=== PATIENT | male | born 1935 | race African-American/Black ===

== ENCOUNTER 2017-08-11 00:02 | Inpatient (IN) | payer MEDICARE, MEDICAID, OTHER ==
[~2017-08-11] VITALS: Ht 162.6 cm; Wt 71.7 kg
[~2017-08-11 00:02] MED LIST: FISH PO; GLIP5TAB12 PO; LEVO50TA8 PO; MULT-1116 PO; SIMV20TA6 PO; SPIR10PO PO; [UNRECOGNIZED DRUG - CODE]
[2017-08-11] MEDS ORDERED: FAMOTIDINE 20MG/2ML VIAL IV STA (00:22)
[2017-08-11] MEDS ORDERED: MORPHINE SULFATE 4 MG/ML CPJ (NOT FOR IM USE) IV STA (00:22)
[2017-08-11] MEDS ORDERED: ONDANSETRON HCL 4MG/2ML VIAL IV STA (00:22)
[2017-08-11 00:38] LABS: BASOPHILS % 0.6 % (0.0-2.0); EOSINOPHILS % 3.5 % (0.0-5.0); HEMATOCRIT. 29.2 % (42.0-52.0); HEMOGLOBIN. 9.6 g/dL (14.0-18.0); LYMPHOCYTES % 16.6 % (20.0-50.0); MEAN CORPUSCULAR HEMOGLOBIN 31.1 pg (28.0-32.0); MEAN CORPUSCULAR VOLUME 95.1 fL (80.0-94.0); MEAN PLATELET VOLUME 7.4 fl (7.4-10.4); MONOCYTES % 6.8 % (2.0-8.0); NEUTROPHILS % 72.5 % (40.0-76.0); PLATELET 232 x1000/uL (130-400); RED BLOOD CELL COUNT 3.07 mill/uL (4.7-6.1)
[2017-08-11 00:47] LABS: INR 1.2; PROTHROMBIN TIME 12.7 sec (9.4-11.6)
[2017-08-11 01:11] LABS: CHLORIDE 111 mEq/L (98-107)
[2017-08-11 01:14] LABS: ETHANOL BLOOD < 10 mg/dL
[2017-08-11] MEDS ORDERED: SODIUM CHLORIDE 0.9% 1000ML BAG (SEPSIS BOLUS) IV ONE (02:00)
[2017-08-11] MEDS ORDERED: LEVOFLOXACIN 750MG PREMIX 150 ML IV SCH (02:42)
[2017-08-11] MEDS ORDERED: METRONIDAZOLE 500 MG PREMIX 100 ML IV SCH (02:43)
[2017-08-11 08:00] VITALS: BP 200/83
[2017-08-11 08:55] LABS: CHLORIDE 117 mEq/L (98-107)
[2017-08-11 09:30] VITALS: BP 200/83
[2017-08-11] MEDS ORDERED: ONDANSETRON HCL 4MG/2ML VIAL IV PRN (09:30)
[2017-08-11] MEDS ORDERED: PANTOPRAZOLE SODIUM 40 MG/VIAL IV SCH (09:30)
[2017-08-11] MEDS ORDERED: DOCUSATE SODIUM 100MG CAPSULE PO PRN (09:30)
[2017-08-11] MEDS ORDERED: SODIUM CHLORIDE 0.45% 1,000 ML IV SCH (09:30)
[2017-08-11] MEDS ORDERED: ACETAMINOPHEN 650MG/20.3ML UDC GT PRN (09:30)
[2017-08-11 12:00] VITALS: BP 190/76
[2017-08-11] MEDS: LEVETIRACETAM 500MG TABLET PO SCH (12:00)
[2017-08-11] MEDS: SERTRALINE HCL 100MG TABLET PO SCH (12:01)
[2017-08-11] MEDS: DONEPEZIL HCL 10MG TABLET PO SCH (12:01)
[2017-08-11] MEDS: AMLODIPINE 10MG TABLET PO SCH (12:01)
[2017-08-11] MEDS: CARVEDILOL 25MG TABLET PO SCH ×2 (12:02→22:19)
[2017-08-11] MEDS: HYDRALAZINE HCL 25MG TABLET PO SCH ×2 (12:02→22:20)
[2017-08-11] MEDS ORDERED: BISACODYL 5MG TABLET PO NR ×3 (13:45→20:00)
[2017-08-11] MEDS ORDERED: SORBITOL 70% SOLN 30ML PO NR ×3 (13:45→20:00)
[2017-08-11] MEDS ORDERED: METOCLOPRAMIDE HCL 10MG/2ML VIAL IV NR ×3 (13:45→20:00)
[2017-08-11] MEDS: GABAPENTIN 100MG CAPSULE PO SCH ×2 (14:30→22:19)
[2017-08-11] MEDS ORDERED: SODIUM BICARBONATE IV SCH (15:15)
[2017-08-11] MEDS ORDERED: DEXTROSE 5% IV SCH (15:15)
[2017-08-11] MEDS ORDERED: WATER IV SCH (15:15)
[2017-08-11 16:00] VITALS: BP 198/78
[2017-08-11] MEDS: SODIUM BICARBONATE 50 MEQ in DEXTROSE 5% WATER 1,000 ML IV SCH (16:39)
[2017-08-11] MEDS: CLONIDINE 0.1MG TABLET PO PRN (17:34)
[2017-08-11] MEDS ORDERED: DEXTROSE 50% WATER 50ML SYRINGE IV PRN (18:15)
[2017-08-11] MEDS ORDERED: CALC667T5 MT (19:01)
[2017-08-11] MEDS ORDERED: ALFU10TA9 MT (19:01)
[2017-08-11] MEDS ORDERED: ASPI-1158 PO (19:01)
[2017-08-11] MEDS ORDERED: ATOR40TA70 MT (19:01)
[2017-08-11] MEDS ORDERED: CALC0.253 MT (19:01)
[2017-08-11] MEDS ORDERED: CARV25TA47 MT (19:02)
[2017-08-11] MEDS ORDERED: GABA-529 MT (19:11)
[2017-08-11] MEDS ORDERED: DONE10TA43 MT (19:11)
[2017-08-11] MEDS ORDERED: HYDR2TAB7 MT (19:11)
[2017-08-11] MEDS ORDERED: NIFE90TA43 MT (19:11)
[2017-08-11] MEDS ORDERED: HYDR-4134 MT (19:11)
[2017-08-11] MEDS ORDERED: LEVE500T19 MT (19:11)
[2017-08-11] MEDS ORDERED: CLON0.1T MT (19:11)
[2017-08-11 19:55] LABS: HEMATOCRIT 24.3 % (42.0-52.0); MEAN CORPUSCULAR HEMOGLOBIN 31.9 pg (28.0-32.0); MEAN CORPUSCULAR VOLUME 97.1 fL (80.0-94.0); PLATELET 192 x1000/uL (130-400); RED BLOOD CELL COUNT 2.51 mill/uL (4.7-6.1); RED CELL DISTRIBUTION WIDTH 15.4 % (11.6-14.6)
[2017-08-11 20:00] VITALS: BP 133/64
[2017-08-11] MEDS ORDERED: PENT400T11 MT (20:01)
[2017-08-11] MEDS ORDERED: SERT-112 MT (20:01)
[2017-08-11] MEDS ORDERED: SORBITOL 70% SOLN 30ML PO SCH (22:12)
[2017-08-11] MEDS ORDERED: BISACODYL 5MG TABLET PO SCH (22:13)
[2017-08-11] MEDS ORDERED: METOCLOPRAMIDE HCL 10MG/2ML VIAL IV SCH (22:14)
[2017-08-11] MEDS: PANTOPRAZOLE SODIUM 40 MG/VIAL IV SCH (22:19)
[2017-08-11] MEDS: ATORVASTATIN CALCIUM 10MG TABLET PO SCH (22:20)
[2017-08-11] MEDS: BLOOD SUGAR DIAGNOSTIC STRIP TEST SCH (22:40)
[2017-08-11] MEDS: INSULIN LISPRO 100 UNITS/ML SUBCUT SCH (22:40)
[2017-08-12] VITALS (10 sets, daily range): BP systolic 119–177; BP diastolic 65–82
[2017-08-12] MEDS: GABAPENTIN 100MG CAPSULE PO SCH ×3 (06:00→21:24)
[2017-08-12 07:13] LABS: BASOPHILS % 0.7 % (0.0-2.0); EOSINOPHILS % 2.4 % (0.0-5.0); HEMATOCRIT. 21.8 % (42.0-52.0); HEMOGLOBIN. 7.3 g/dL (14.0-18.0); LYMPHOCYTES % 20.7 % (20.0-50.0); MEAN CORPUSCULAR HEMOGLOBIN 31.8 pg (28.0-32.0); MEAN CORPUSCULAR VOLUME 94.8 fL (80.0-94.0); MEAN PLATELET VOLUME 7.8 fl (7.4-10.4); MONOCYTES % 11.7 % (2.0-8.0); NEUTROPHILS % 64.5 % (40.0-76.0); PLATELET 180 x1000/uL (130-400); RED CELL DISTRIBUTION WIDTH 15.1 % (11.6-14.6)
[2017-08-12] MEDS: BLOOD SUGAR DIAGNOSTIC STRIP TEST SCH ×4 (07:20→21:24)
[2017-08-12 07:50] LABS: CHLORIDE 114 mEq/L (98-107)
[2017-08-12] MEDS: INSULIN LISPRO 100 UNITS/ML SUBCUT SCH ×4 (07:50→21:00)
[2017-08-12] MEDS: LEVETIRACETAM 500MG TABLET PO SCH (09:02)
[2017-08-12] MEDS: DONEPEZIL HCL 10MG TABLET PO SCH (09:02)
[2017-08-12] MEDS: HYDRALAZINE HCL 25MG TABLET PO SCH ×2 (09:03→20:53)
[2017-08-12] MEDS: AMLODIPINE 10MG TABLET PO SCH (09:03)
[2017-08-12] MEDS: SERTRALINE HCL 100MG TABLET PO SCH (09:03)
[2017-08-12] MEDS: CARVEDILOL 25MG TABLET PO SCH ×2 (09:04→20:53)
[2017-08-12] MEDS: PANTOPRAZOLE SODIUM 40 MG/VIAL IV SCH ×2 (09:04→20:52)
[2017-08-12] MEDS: SODIUM BICARBONATE 50 MEQ in DEXTROSE 5% WATER 1,000 ML IV SCH (10:06)
[2017-08-12] MEDS ORDERED: SODIUM CHLORIDE 0.9% 10ML VIAL ONE (15:21)
[2017-08-12] MEDS ORDERED: SIMETHICONE 40 MG/0.6 ML 30ML ONE (15:21)
[2017-08-12 16:58] LABS: HEMOGLOBIN 8.5 g/dL (14.0-18.0)
[2017-08-12] MEDS ORDERED: MIDAZOLAM HCL 5 MG/5 ML VIAL ONE (17:40)
[2017-08-12] MEDS ORDERED: FENTANYL CITRATE/PF 50MCG/ML 2ML VIAL ONE (17:40)
[2017-08-12] MEDS ORDERED: FENTANYL CITRATE/PF 50MCG/ML 2ML VIAL IV PRN (18:21)
[2017-08-12] MEDS ORDERED: MIDAZOLAM HCL 5 MG/5 ML VIAL IV PRN (18:42)
[2017-08-12] MEDS: ATORVASTATIN CALCIUM 10MG TABLET PO SCH (20:53)
[2017-08-13] VITALS: BP 175/77
[2017-08-13] MEDS: SODIUM BICARBONATE 50 MEQ in DEXTROSE 5% WATER 1,000 ML IV SCH (03:01)
[2017-08-13 04:00] VITALS: BP 177/74
[2017-08-13] MEDS: GABAPENTIN 100MG CAPSULE PO SCH ×3 (06:01→21:23)
[2017-08-13] MEDS: BLOOD SUGAR DIAGNOSTIC STRIP TEST SCH ×4 (07:20→21:21)
[2017-08-13] MEDS: INSULIN LISPRO 100 UNITS/ML SUBCUT SCH ×4 (07:50→21:00)
[2017-08-13 08:00] VITALS: BP 166/77
[2017-08-13] MEDS: PANTOPRAZOLE SODIUM 40 MG/VIAL IV SCH ×2 (08:17→21:24)
[2017-08-13] MEDS: SERTRALINE HCL 100MG TABLET PO SCH (08:21)
[2017-08-13] MEDS: LEVETIRACETAM 500MG TABLET PO SCH (08:21)
[2017-08-13] MEDS: DONEPEZIL HCL 10MG TABLET PO SCH (08:22)
[2017-08-13] MEDS: AMLODIPINE 10MG TABLET PO SCH (08:22)
[2017-08-13] MEDS: CARVEDILOL 25MG TABLET PO SCH ×2 (08:22→21:00)
[2017-08-13] MEDS: HYDRALAZINE HCL 25MG TABLET PO SCH ×2 (08:23→21:23)
[2017-08-13 12:00] VITALS: BP 169/69
[2017-08-13 12:19] LABS: BASOPHILS % 0.5 % (0.0-2.0); EOSINOPHILS % 4.1 % (0.0-5.0); HEMATOCRIT. 27.2 % (42.0-52.0); HEMOGLOBIN. 9.1 g/dL (14.0-18.0); LYMPHOCYTES % 12.7 % (20.0-50.0); MEAN CORPUSCULAR HEMOGLOBIN 31.6 pg (28.0-32.0); MEAN CORPUSCULAR VOLUME 94.5 fL (80.0-94.0); MEAN PLATELET VOLUME 7.9 fl (7.4-10.4); MONOCYTES % 7.3 % (2.0-8.0); NEUTROPHILS % 75.4 % (40.0-76.0); PLATELET 200 x1000/uL (130-400); RED BLOOD CELL COUNT 2.88 mill/uL (4.7-6.1); RED CELL DISTRIBUTION WIDTH 15.4 % (11.6-14.6)
[2017-08-13] MEDS: DEXTROSE 5% WATER 1,000 ML IV SCH (13:00)
[2017-08-13] MEDS: CLONIDINE 0.1MG TABLET PO PRN (15:01)
[2017-08-13] MEDS: HYDROMORPHONE HCL 2MG TABLET PO PRN (19:28)
[2017-08-13 20:00] VITALS: BP 155/62
[2017-08-13] MEDS: ATORVASTATIN CALCIUM 10MG TABLET PO SCH (21:23)
[2017-08-14] VITALS: BP 140/63
[2017-08-14] MEDS: DEXTROSE 5% WATER 1,000 ML IV SCH ×3 (00:21→23:43)
[2017-08-14 04:00] VITALS: BP 187/82
[2017-08-14] MEDS: CLONIDINE 0.1MG TABLET PO PRN (05:37)
[2017-08-14] MEDS: GABAPENTIN 100MG CAPSULE PO SCH ×3 (05:37→22:20)
[2017-08-14] MEDS: BLOOD SUGAR DIAGNOSTIC STRIP TEST SCH ×4 (06:23→22:30)
[2017-08-14 07:32] LABS: BASOPHILS % 0.6 % (0.0-2.0); EOSINOPHILS % 7.1 % (0.0-5.0); HEMOGLOBIN. 7.9 g/dL (14.0-18.0); LYMPHOCYTES % 21.2 % (20.0-50.0); MEAN CORPUSCULAR HEMOGLOBIN 31.6 pg (28.0-32.0); MEAN CORPUSCULAR VOLUME 92.1 fL (80.0-94.0); MEAN PLATELET VOLUME 7.8 fl (7.4-10.4); MONOCYTES % 8.3 % (2.0-8.0); NEUTROPHILS % 62.8 % (40.0-76.0); PLATELET 182 x1000/uL (130-400); RED CELL DISTRIBUTION WIDTH 14.9 % (11.6-14.6)
[2017-08-14] MEDS: INSULIN LISPRO 100 UNITS/ML SUBCUT SCH ×4 (07:32→22:30)
[2017-08-14 08:00] VITALS: BP 204/82
[2017-08-14] MEDS: PANTOPRAZOLE SODIUM 40 MG/VIAL IV SCH ×2 (09:00→22:20)
[2017-08-14] MEDS: HYDRALAZINE HCL 25MG TABLET PO SCH ×2 (09:37→22:22)
[2017-08-14] MEDS: LEVETIRACETAM 500MG TABLET PO SCH (09:37)
[2017-08-14] MEDS: DONEPEZIL HCL 10MG TABLET PO SCH (09:38)
[2017-08-14] MEDS: CARVEDILOL 25MG TABLET PO SCH ×2 (09:38→22:22)
[2017-08-14] MEDS: AMLODIPINE 10MG TABLET PO SCH (09:38)
[2017-08-14] MEDS: SERTRALINE HCL 100MG TABLET PO SCH (09:38)
[2017-08-14] MEDS ORDERED: POTASSIUM CHLORIDE 20MEQ TABLET SR PO NR (10:00)
[2017-08-14] MEDS: HYDROMORPHONE HCL 2MG TABLET PO PRN ×2 (11:37→23:44)
[2017-08-14 11:38] VITALS: BP 140/55
[2017-08-14 16:00] VITALS: BP 156/67
[2017-08-14] MEDS: HYDROCODONE/ACETAMINOPHEN 5/325MG TABLET PO PRN (17:44)
[2017-08-14 20:00] VITALS: BP 153/69
[2017-08-14] MEDS: ATORVASTATIN CALCIUM 10MG TABLET PO SCH (22:20)
[2017-08-15] VITALS: BP 181/71
[2017-08-15 04:00] VITALS: BP 160/66
[2017-08-15] MEDS: GABAPENTIN 100MG CAPSULE PO SCH ×3 (06:23→22:02)
[2017-08-15] MEDS: BLOOD SUGAR DIAGNOSTIC STRIP TEST SCH ×4 (06:58→22:00)
[2017-08-15] MEDS: INSULIN LISPRO 100 UNITS/ML SUBCUT SCH ×4 (06:59→22:00)
[2017-08-15 07:46] LABS: BASOPHILS % 0.6 % (0.0-2.0); EOSINOPHILS % 7.6 % (0.0-5.0); HEMATOCRIT. 23.2 % (42.0-52.0); HEMOGLOBIN. 7.9 g/dL (14.0-18.0); LYMPHOCYTES % 23.9 % (20.0-50.0); MEAN CORPUSCULAR HEMOGLOBIN 31.4 pg (28.0-32.0); MEAN CORPUSCULAR VOLUME 91.6 fL (80.0-94.0); MEAN PLATELET VOLUME 7.6 fl (7.4-10.4); NEUTROPHILS % 58.9 % (40.0-76.0); PLATELET 182 x1000/uL (130-400); RED BLOOD CELL COUNT 2.53 mill/uL (4.7-6.1); RED CELL DISTRIBUTION WIDTH 14.8 % (11.6-14.6)
[2017-08-15 08:00] VITALS: BP 191/77
[2017-08-15 08:53] LABS: CHLORIDE 107 mEq/L (98-107)
[2017-08-15] MEDS: CARVEDILOL 25MG TABLET PO SCH ×2 (09:00→22:03)
[2017-08-15] MEDS: HYDRALAZINE HCL 25MG TABLET PO SCH ×2 (09:10→22:04)
[2017-08-15] MEDS: PANTOPRAZOLE SODIUM 40 MG/VIAL IV SCH ×2 (09:10→22:02)
[2017-08-15] MEDS: DONEPEZIL HCL 10MG TABLET PO SCH (09:11)
[2017-08-15] MEDS: SERTRALINE HCL 100MG TABLET PO SCH (09:11)
[2017-08-15] MEDS: LEVETIRACETAM 500MG TABLET PO SCH (09:11)
[2017-08-15] MEDS: AMLODIPINE 10MG TABLET PO SCH (09:12)
[2017-08-15] MEDS: HYDROCODONE/ACETAMINOPHEN 5/325MG TABLET PO PRN ×2 (09:12→22:09)
[2017-08-15] MEDS ORDERED: POTASSIUM CHLORIDE INJ 40 MEQ in DEXT 5% WATER 500 ML IV ONE (09:15)
[2017-08-15] MEDS: KCL 20MEQ/100ML PREMIX 100 ML IV SCH ×2 (11:16→12:29)
[2017-08-15 12:00] VITALS: BP 172/73
[2017-08-15] MEDS ORDERED: POTASSIUM CHLORIDE 20MEQ TABLET SR PO NR (13:30)
[2017-08-15 16:00] VITALS: BP 167/64
[2017-08-15] MEDS: HYDROMORPHONE HCL 2MG TABLET PO PRN (16:58)
[2017-08-15] MEDS: CLONIDINE 0.1MG TABLET PO PRN (19:05)
[2017-08-15 20:00] VITALS: BP 171/72
[2017-08-15] MEDS: ATORVASTATIN CALCIUM 10MG TABLET PO SCH (22:04)
[2017-08-16] VITALS: BP 149/56
[2017-08-16 04:00] VITALS: BP 163/68
[2017-08-16 05:30] LABS: BASOPHILS % 0.5 % (0.0-2.0); EOSINOPHILS % 7.8 % (0.0-5.0); HEMATOCRIT. 22.1 % (42.0-52.0); HEMOGLOBIN. 7.7 g/dL (14.0-18.0); LYMPHOCYTES % 25.5 % (20.0-50.0); MEAN CORPUSCULAR HEMOGLOBIN 32.2 pg (28.0-32.0); MEAN CORPUSCULAR VOLUME 91.8 fL (80.0-94.0); MEAN PLATELET VOLUME 7.5 fl (7.4-10.4); MONOCYTES % 8.7 % (2.0-8.0); NEUTROPHILS % 57.5 % (40.0-76.0); PLATELET 184 x1000/uL (130-400); RED CELL DISTRIBUTION WIDTH 14.6 % (11.6-14.6)
[2017-08-16] MEDS: GABAPENTIN 100MG CAPSULE PO SCH ×2 (05:50→14:55)
[2017-08-16] MEDS: BLOOD SUGAR DIAGNOSTIC STRIP TEST SCH ×3 (07:20→17:33)
[2017-08-16] MEDS: INSULIN LISPRO 100 UNITS/ML SUBCUT SCH ×3 (07:22→17:50)
[2017-08-16 08:00] VITALS: BP 194/84
[2017-08-16] MEDS: CARVEDILOL 25MG TABLET PO SCH (08:36)
[2017-08-16] MEDS: DONEPEZIL HCL 10MG TABLET PO SCH (08:52)
[2017-08-16] MEDS: LEVETIRACETAM 500MG TABLET PO SCH (08:53)
[2017-08-16] MEDS: HYDRALAZINE HCL 25MG TABLET PO SCH (08:53)
[2017-08-16] MEDS: AMLODIPINE 10MG TABLET PO SCH (08:54)
[2017-08-16] MEDS: PANTOPRAZOLE SODIUM 40 MG/VIAL IV SCH (08:58)
[2017-08-16] MEDS: SERTRALINE HCL 100MG TABLET PO SCH (08:58)
[2017-08-16] MEDS ORDERED: HYDROCODONE/ACETAMINOPHEN 5/325MG TABLET PO PRN (10:45)
[2017-08-16 12:00] VITALS: BP 167/68
[2017-08-16] MEDS ORDERED: HYDROCODONE/ACETAMINOPHEN 10/325MG TABLET PO PRN (14:00)
[2017-08-16 16:00] VITALS: BP 163/75
[2017-08-16 16:38] VITALS: BP 163/75
[2017-08-16] MEDS: CLONIDINE 0.1MG TABLET PO PRN (17:30)
== END 2017-08-16 21:00 | disposition home health service (06) | DRG 377 ==
LOC: ER 00:02 → EDBEDREQ 02:30 → ENRESERV 06:39 → 6EST 08:48
PROVIDERS: ADMIT Hospitalist; ATTEND Hospitalist
PROC: 0DB98ZX Excision of Duodenum, Via Natural or Artificial Opening Endoscopic, Diagnostic (ICD-10-PCS; 2017-08-12)
PROC: 0DB68ZX Excision of Stomach, Via Natural or Artificial Opening Endoscopic, Diagnostic (ICD-10-PCS; 2017-08-12)
PROC: 30233N1 Transfusion of Nonautologous Red Blood Cells into Peripheral Vein, Percutaneous Approach (ICD-10-PCS; 2017-08-12)
PROC: 0DBE8ZX Excision of Large Intestine, Via Natural or Artificial Opening Endoscopic, Diagnostic (ICD-10-PCS; principal; 2017-08-12 12:00)
DX: K29.71 Gastritis, unspecified, with bleeding (principal); N17.0 Acute kidney failure with tubular necrosis; E87.0 Hyperosmolality and hypernatremia; E87.2 Acidosis; K57.31 Diverticulosis of large intestine without perforation or abscess with bleeding; D50.0 Iron deficiency anemia secondary to blood loss (chronic); K64.8 Other hemorrhoids; E87.5 Hyperkalemia; N18.9 Chronic kidney disease, unspecified; D72.829 Elevated white blood cell count, unspecified; K20.9 Esophagitis, unspecified; E11.22 Type 2 diabetes mellitus with diabetic chronic kidney disease; I12.9 Hypertensive chronic kidney disease with stage 1 through stage 4 chronic kidney disease, or unspecified chronic kidney disease; Z90.49 Acquired absence of other specified parts of digestive tract; Z86.73 Personal history of transient ischemic attack (TIA), and cerebral infarction without residual deficits; Z88.8 Allergy status to other drugs, medicaments and biological substances; Z79.899 Other long term (current) drug therapy
CPT/HCPCS: 36415; 36430; 71045; 74176; 80048; 80053; 82270; 82962; 83605; 83690; 83735; 83880; 84100; 84484; 85014; 85018; 85025; 85027; 85610; 86850; 86900; 86920; 87040; 87045; 87449; 87493; 88305; 88312; 88313; 89055; 93005; 93970; 96365; 96367; 96375; 97162; 97166; 99152; 99153; 99291; A4216; C1893; C9113; G0482; J1956; J2250; J2270; J2405; J2765; J3010; J3480; J3490; J7030; J7040; J7070; P9016

== ENCOUNTER 2018-03-09 01:57 | Inpatient (IN) | payer MEDICARE, MEDICAID, OTHER ==
[~2018-03-09] VITALS: Ht 172.7 cm; Wt 80.3 kg
[2018-03-09] VITALS (68 sets, daily range): BP systolic 91–167; BP diastolic 46–84
[~2018-03-09 01:57] MED LIST changes: +ALFU10TA9 MT; +ASPI-1158 PO; +ATOR40TA70 MT; +CALC0.253 MT; +CALC667T5 MT; +CARV25TA47 MT; +CLON0.1T MT; +DONE10TA43 MT; +GABA-529 MT; +HYDR-4134 MT; +HYDR2TAB7 MT; +LEVE500T19 MT; +NIFE90TA43 MT; +PENT400T11 MT; +SERT-112 MT
[2018-03-09 02:24] LABS: CHLORIDE 115 mEq/L (98-107)
[2018-03-09 02:26] LABS: INR 1.2; PROTHROMBIN TIME 11.9 sec (9.1-11.1)
[2018-03-09 02:31] LABS: LDL CHOLESTEROL 63 mg/dL (5-100)
[2018-03-09] MEDS ORDERED: NICARDIPINE 100 MG in SODIUM CHLORIDE 0.9% 60 ML IV ONE (02:45)
[2018-03-09] MEDS ORDERED: DEXAMETHASONE 10 MG/ML VIAL IV ONE (02:45)
[2018-03-09] MEDS ORDERED: LEVETIRACETAM 500MG PREMIX 100 ML IV ONE (02:45)
[2018-03-09 02:57] LABS: BASOPHILS % 0.7 % (0.0-2.0); EOSINOPHILS % 7.9 % (0.0-5.0); HEMATOCRIT. 28.5 % (42.0-52.0); HEMOGLOBIN. 9.5 g/dL (14.0-18.0); MEAN CORPUSCULAR HEMOGLOBIN 30.5 pg (28.0-32.0); MEAN CORPUSCULAR VOLUME 91.8 fL (80.0-94.0); MEAN PLATELET VOLUME 7.9 fl (7.4-10.4); MONOCYTES % 6.9 % (2.0-8.0); NEUTROPHILS % 71.5 % (40.0-76.0); PLATELET 230 x1000/uL (130-400); RED CELL DISTRIBUTION WIDTH 15.1 % (11.6-14.6)
[2018-03-09] MEDS ORDERED: HYDRALAZINE 20MG/ML VIAL IV ONE (04:15)
[2018-03-09] MEDS ORDERED: NICARDIPINE 50 MG in SODIUM CHLORIDE 0.9% 230 ML IV PRN (06:00)
[2018-03-09] MEDS: DEXAMETHASONE 4MG/ML 1ML VIAL IV SCH ×3 (07:05→17:02)
[2018-03-09] MEDS: DEXT 5%/LACTATED RINGERS 1,000 ML IV SCH (07:06)
[2018-03-09] MEDS ORDERED: LEVETIRACETAM 500MG PREMIX 100 ML IV SCH (09:00)
[2018-03-09] MEDS: NITROPRUSSIDE 50 MG in SODIUM CHLORIDE 0.9% 248 ML IV PRN (09:31)
[2018-03-09] MEDS ORDERED: DEXTROSE 50% WATER 50ML SYRINGE IV PRN (10:15)
[2018-03-09] MEDS: LEVETIRACETAM 500MG in SODIUM CHLORIDE 0.9% 100ML IV SCH ×2 (10:25→21:41)
[2018-03-09] MEDS: BLOOD SUGAR DIAGNOSTIC STRIP TEST SCH ×3 (11:30→21:36)
[2018-03-09] MEDS: INSULIN LISPRO 100 UNITS/ML SUBCUT SCH ×3 (12:00→21:42)
[2018-03-09] MEDS ORDERED: FOLI1TAB33 MT (14:47)
[2018-03-09] MEDS ORDERED: CHOL400C8 MT (14:47)
[2018-03-09] MEDS ORDERED: CHOL400T15 MT (14:47)
[2018-03-09] MEDS ORDERED: FERR325T6 MT (14:47)
[2018-03-09] MEDS: CLONIDINE 0.1MG TABLET PO SCH (16:56)
[2018-03-09] MEDS: SERTRALINE HCL 100MG TABLET PO SCH (16:56)
[2018-03-09 18:42] LABS: T4 FREE 0.63 ng/dL (0.76-1.46)
[2018-03-09] MEDS: ATORVASTATIN CALCIUM 40MG TABLET PO SCH (21:00)
[2018-03-09] MEDS: CARVEDILOL 25MG TABLET PO SCH (21:41)
[2018-03-10] VITALS (91 sets, daily range): BP systolic 92–224; BP diastolic 28–134
[2018-03-10] MEDS: DEXAMETHASONE 4MG/ML 1ML VIAL IV SCH ×5 (00:10→23:02)
[2018-03-10] MEDS: DEXT 5%/LACTATED RINGERS 1,000 ML IV SCH (00:11)
[2018-03-10] MEDS: HYDROCODONE/APAP 7.5/325MG 1 TAB TABLET PO PRN ×2 (00:11→13:19)
[2018-03-10] MEDS: NITROPRUSSIDE 50 MG in SODIUM CHLORIDE 0.9% 248 ML IV PRN ×5 (00:46→21:02)
[2018-03-10 02:24] LABS: CREATINE KINASE 55 IU/L (39-308)
[2018-03-10 02:25] LABS: CREATINE KINASE MB FRACTION < 1.0 ng/mL (0.5-3.6)
[2018-03-10 06:24] LABS: CREATINE KINASE 57 IU/L (39-308)
[2018-03-10 06:26] LABS: CREATINE KINASE MB FRACTION < 1.0 ng/mL (0.5-3.6)
[2018-03-10] MEDS: BLOOD SUGAR DIAGNOSTIC STRIP TEST SCH ×4 (06:30→21:09)
[2018-03-10] MEDS: LEVOTHYROXINE SODIUM 50MCG TABLET PO SCH (06:44)
[2018-03-10] MEDS: INSULIN LISPRO 100 UNITS/ML SUBCUT SCH ×4 (06:44→21:00)
[2018-03-10] MEDS: SERTRALINE HCL 100MG TABLET PO SCH (08:10)
[2018-03-10] MEDS: CLONIDINE 0.1MG TABLET PO SCH ×2 (08:10→17:00)
[2018-03-10] MEDS: GLIPIZIDE 5MG TABLET PO SCH (08:10)
[2018-03-10] MEDS: CARVEDILOL 25MG TABLET PO SCH ×2 (08:11→20:09)
[2018-03-10] MEDS: DONEPEZIL HCL 10MG TABLET PO SCH (08:11)
[2018-03-10] MEDS ORDERED: LEVETIRACETAM 500MG TABLET PO SCH (09:00)
[2018-03-10] MEDS: LEVETIRACETAM 500MG in SODIUM CHLORIDE 0.9% 100ML IV SCH ×2 (09:11→20:09)
[2018-03-10 09:51] LABS: BG CARBOXYHEMOGLOBIN 0.3 % (0.5-1.5); BG DEOXYHEMOGLOBIN 4.9 % (0.0-5.0); BG FRACTION INSPIRED OXYGEN 21; BG HCO3 ACT 21.1 mmol/L (22.0-26.0); BG METHEMOGLOBIN 0.4 % (0.0-1.5); BG OXYGEN SATURATION 95.1 % (92.0-98.5); BG OXYHEMOGLOBIN 94.4 % (94.0-97.0); BG PCO2 34.6 mmHg (35.0-45.0); BG PH 7.404 (7.350-7.450); BG PO2 77.6 mmHg (75.0-100.0); BG SAMPLE SITE RIGHT RADIAL; BG TOTAL HEMOGLOBIN 10.9 g/dL (12.0-18.0); BG VENT MODE ROOM AIR
[2018-03-10 14:03] LABS: CREATINE KINASE 57 IU/L (39-308); CREATINE KINASE MB FRACTION < 1.0 ng/mL (0.5-3.6)
[2018-03-10] MEDS: SODIUM CHLORIDE 0.9% 1,000 ML IV SCH (15:58)
[2018-03-10] MEDS ORDERED: FUROSEMIDE 100MG/10ML VIAL IVP SCH (18:00)
[2018-03-10 19:03] LABS: HEPATITIS B SURFACE ANTIGEN NEGATIVE
[2018-03-10 19:33] LABS: HEPATITIS A AB IGM NEGATIVE (NEGATIVE)
[2018-03-10] MEDS: ATORVASTATIN CALCIUM 40MG TABLET PO SCH (20:09)
[2018-03-11] VITALS (98 sets, daily range): BP systolic 94–203; BP diastolic 30–90
[2018-03-11] MEDS: NITROPRUSSIDE 50 MG in SODIUM CHLORIDE 0.9% 248 ML IV PRN ×2 (01:33→05:59)
[2018-03-11] MEDS: CLONIDINE 0.2MG TABLET PO PRN (01:53)
[2018-03-11] MEDS: DEXAMETHASONE 4MG/ML 1ML VIAL IV SCH ×3 (05:08→18:09)
[2018-03-11 05:31] LABS: HEMATOCRIT. 21.5 % (42.0-52.0); MEAN CORPUSCULAR HEMOGLOBIN 29.9 pg (28.0-32.0); MEAN CORPUSCULAR VOLUME 92.6 fL (80.0-94.0); MEAN PLATELET VOLUME 8.5 fl (7.4-10.4); PLATELET 189 x1000/uL (130-400); RED BLOOD CELL COUNT 2.32 mill/uL (4.7-6.1); RED CELL DISTRIBUTION WIDTH 15.3 % (11.6-14.6)
[2018-03-11 06:05] LABS: HEMOGLOBIN. 6.9 g/dL (14.0-18.0)
[2018-03-11] MEDS: INSULIN LISPRO 100 UNITS/ML SUBCUT SCH ×4 (06:54→20:37)
[2018-03-11] MEDS: BLOOD SUGAR DIAGNOSTIC STRIP TEST SCH ×4 (06:54→20:37)
[2018-03-11] MEDS: LEVOTHYROXINE SODIUM 50MCG TABLET PO SCH (06:57)
[2018-03-11 08:02] LABS: MEAN CORPUSCULAR HEMOGLOBIN 30.7 pg (28.0-32.0); MEAN CORPUSCULAR VOLUME 92.4 fL (80.0-94.0); MEAN PLATELET VOLUME 8.4 fl (7.4-10.4); PLATELET 170 x1000/uL (130-400); RED BLOOD CELL COUNT 2.24 mill/uL (4.7-6.1); RED CELL DISTRIBUTION WIDTH 15.1 % (11.6-14.6)
[2018-03-11 08:12] LABS: HEMATOCRIT. 20.7 % (42.0-52.0); HEMOGLOBIN. 6.9 g/dL (14.0-18.0)
[2018-03-11 08:39] LABS: PLATELET ESTIMATE NORMAL
[2018-03-11] MEDS: SERTRALINE HCL 100MG TABLET PO SCH (09:19)
[2018-03-11] MEDS: LEVETIRACETAM 500MG in SODIUM CHLORIDE 0.9% 100ML IV SCH ×2 (09:19→20:40)
[2018-03-11] MEDS: CLONIDINE 0.1MG TABLET PO SCH ×2 (09:19→18:09)
[2018-03-11] MEDS: DONEPEZIL HCL 10MG TABLET PO SCH (09:19)
[2018-03-11] MEDS: GLIPIZIDE 5MG TABLET PO SCH (09:19)
[2018-03-11] MEDS: CARVEDILOL 25MG TABLET PO SCH ×2 (09:20→20:40)
[2018-03-11] MEDS: HYDROCODONE/APAP 7.5/325MG 1 TAB TABLET PO PRN (09:24)
[2018-03-11] MEDS: NITROPRUSSIDE 100 MG in DEXT 5% WATER 250 ML IV PRN ×3 (09:35→19:51)
[2018-03-11 10:27] LABS: PLATELET ESTIMATE NORMAL
[2018-03-11] MEDS: SODIUM CHLORIDE 0.9% 1,000 ML IV SCH ×2 (11:45→14:16)
[2018-03-11] MEDS: ACETAMINOPHEN 325MG TABLET PO PRN (12:02)
[2018-03-11] MEDS: MORPHINE SULFATE 4 MG/ML CPJ (NOT FOR IM USE) IV PRN (14:11)
[2018-03-11] MEDS: ATORVASTATIN CALCIUM 40MG TABLET PO SCH (20:40)
[2018-03-12] VITALS (81 sets, daily range): BP systolic 114–235; BP diastolic 41–101
[2018-03-12] MEDS: NITROPRUSSIDE 100 MG in DEXT 5% WATER 250 ML IV PRN (00:27)
[2018-03-12] MEDS: DEXAMETHASONE 4MG/ML 1ML VIAL IV SCH ×4 (00:27→18:08)
[2018-03-12] MEDS ORDERED: NITROGLYCERIN 50MG PREMIX 250 ML IV PRN (04:45)
[2018-03-12] MEDS: LEVOTHYROXINE SODIUM 50MCG TABLET PO SCH (05:34)
[2018-03-12] MEDS: BLOOD SUGAR DIAGNOSTIC STRIP TEST SCH ×4 (05:34→21:00)
[2018-03-12] MEDS: INSULIN LISPRO 100 UNITS/ML SUBCUT SCH ×4 (07:00→22:01)
[2018-03-12] MEDS ORDERED: NICARDIPINE 100 MG in SODIUM CHLORIDE 0.9% 60 ML IV PRN (07:45)
[2018-03-12] MEDS: DONEPEZIL HCL 10MG TABLET PO SCH (08:26)
[2018-03-12] MEDS: CLONIDINE 0.1MG TABLET PO SCH ×3 (08:26→22:00)
[2018-03-12] MEDS: CLONIDINE 0.2MG TABLET PO PRN (08:26)
[2018-03-12] MEDS: GLIPIZIDE 5MG TABLET PO SCH (08:27)
[2018-03-12] MEDS: SERTRALINE HCL 100MG TABLET PO SCH (08:34)
[2018-03-12] MEDS: CARVEDILOL 25MG TABLET PO SCH ×2 (09:00→21:00)
[2018-03-12 09:42] LABS: HEMOGLOBIN. 9.4 g/dL (14.0-18.0); MEAN CORPUSCULAR HEMOGLOBIN 30.6 pg (28.0-32.0); MEAN CORPUSCULAR VOLUME 91.3 fL (80.0-94.0); MEAN PLATELET VOLUME 8.7 fl (7.4-10.4); PLATELET 190 x1000/uL (130-400); RED BLOOD CELL COUNT 3.07 mill/uL (4.7-6.1); RED CELL DISTRIBUTION WIDTH 14.9 % (11.6-14.6)
[2018-03-12] MEDS: LEVETIRACETAM 500MG in SODIUM CHLORIDE 0.9% 100ML IV SCH ×2 (10:04→21:33)
[2018-03-12] MEDS: HYDROCODONE/APAP 7.5/325MG 1 TAB TABLET PO PRN (10:34)
[2018-03-12] MEDS ORDERED: LIDOCAINE HCL 1% 20ML VIAL (Pyxis) INJ ONE (10:47)
[2018-03-12 11:49] LABS: PLATELET ESTIMATE NORMAL
[2018-03-12] MEDS: MORPHINE SULFATE 4 MG/ML CPJ (NOT FOR IM USE) IV PRN (12:28)
[2018-03-12] MEDS ORDERED: ENALAPRIL 1.25MG/ML VIAL 1ML IV SCH (13:00)
[2018-03-12] MEDS ORDERED: HYDRALAZINE HCL 50MG TABLET PO SCH ×2 (13:45→14:00)
[2018-03-12] MEDS ORDERED: NITROPRUSSIDE 100 MG in DEXT 5% WATER 250 ML IV PRN (15:45)
[2018-03-12] MEDS: NITROPRUSSIDE IV PRN (16:02)
[2018-03-12] MEDS: SODIUM CHLORIDE 0.9% IV PRN (16:02)
[2018-03-12] MEDS: ATORVASTATIN CALCIUM 40MG TABLET PO SCH (21:33)
[2018-03-12] MEDS: HYDRALAZINE HCL 100MG TABLET PO SCH (21:33)
[2018-03-12] MEDS: MINOXIDIL 2.5MG TABLET PO SCH (21:33)
[2018-03-13] VITALS (93 sets, daily range): BP systolic 85–176; BP diastolic 31–85
[2018-03-13] MEDS: DEXAMETHASONE 4MG/ML 1ML VIAL IV SCH ×4 (00:38→17:32)
[2018-03-13] MEDS: MORPHINE SULFATE 4 MG/ML CPJ (NOT FOR IM USE) IV PRN ×3 (01:22→17:32)
[2018-03-13] MEDS: HYDROCODONE/APAP 7.5/325MG 1 TAB TABLET PO PRN ×2 (02:33→10:47)
[2018-03-13 05:44] LABS: HEMATOCRIT. 24.8 % (42.0-52.0); HEMOGLOBIN. 8.2 g/dL (14.0-18.0); MEAN CORPUSCULAR HEMOGLOBIN 30.6 pg (28.0-32.0); MEAN CORPUSCULAR VOLUME 92.8 fL (80.0-94.0); PLATELET 156 x1000/uL (130-400); RED BLOOD CELL COUNT 2.67 mill/uL (4.7-6.1); RED CELL DISTRIBUTION WIDTH 14.9 % (11.6-14.6)
[2018-03-13] MEDS: INSULIN LISPRO 100 UNITS/ML SUBCUT SCH ×4 (06:35→21:00)
[2018-03-13] MEDS: BLOOD SUGAR DIAGNOSTIC STRIP TEST SCH ×4 (06:35→21:00)
[2018-03-13] MEDS: HYDRALAZINE HCL 100MG TABLET PO SCH ×3 (06:36→22:46)
[2018-03-13] MEDS: LEVOTHYROXINE SODIUM 50MCG TABLET PO SCH (06:36)
[2018-03-13] MEDS: CLONIDINE 0.1MG TABLET PO SCH ×3 (06:38→22:46)
[2018-03-13] MEDS: SODIUM CHLORIDE 0.9% IV PRN (07:23)
[2018-03-13] MEDS: NITROPRUSSIDE IV PRN (07:23)
[2018-03-13 07:58] LABS: PLATELET ESTIMATE NORMAL
[2018-03-13] MEDS: CARVEDILOL 25MG TABLET PO SCH ×2 (09:00→21:00)
[2018-03-13] MEDS: LEVETIRACETAM 500MG in SODIUM CHLORIDE 0.9% 100ML IV SCH (10:00)
[2018-03-13] MEDS: MINOXIDIL 2.5MG TABLET PO SCH ×2 (10:00→22:48)
[2018-03-13] MEDS: DONEPEZIL HCL 10MG TABLET PO SCH (10:00)
[2018-03-13] MEDS: GLIPIZIDE 5MG TABLET PO SCH (10:00)
[2018-03-13] MEDS: FAMOTIDINE 20MG TABLET PO SCH (12:38)
[2018-03-13] MEDS: SERTRALINE HCL 100MG TABLET PO SCH (14:10)
[2018-03-13] MEDS ORDERED: HALOPERIDOL 1MG TABLET PO PRN (18:30)
[2018-03-13] MEDS: ATORVASTATIN CALCIUM 40MG TABLET PO SCH (22:45)
[2018-03-14] VITALS (83 sets, daily range): BP systolic 77–169; BP diastolic 40–79
[2018-03-14] MEDS: CLONIDINE 0.2MG TABLET PO PRN (02:57)
[2018-03-14] MEDS: HYDRALAZINE HCL 100MG TABLET PO SCH ×4 (05:51→22:40)
[2018-03-14] MEDS: CLONIDINE 0.1MG TABLET PO SCH ×3 (05:52→22:00)
[2018-03-14] MEDS: LEVOTHYROXINE SODIUM 50MCG TABLET PO SCH (05:52)
[2018-03-14] MEDS: BLOOD SUGAR DIAGNOSTIC STRIP TEST SCH ×3 (06:30→21:00)
[2018-03-14] MEDS: INSULIN LISPRO 100 UNITS/ML SUBCUT SCH ×3 (06:43→21:00)
[2018-03-14] MEDS: CARVEDILOL 25MG TABLET PO SCH ×2 (08:58→21:00)
[2018-03-14] MEDS: GLIPIZIDE 5MG TABLET PO SCH (08:58)
[2018-03-14] MEDS: MINOXIDIL 2.5MG TABLET PO SCH ×2 (08:58→22:40)
[2018-03-14] MEDS: FAMOTIDINE 20MG TABLET PO SCH (08:58)
[2018-03-14] MEDS: ACETAMINOPHEN 325MG TABLET PO PRN (08:58)
[2018-03-14 11:36] LABS: BASOPHILS % 0.1 % (0.0-2.0); EOSINOPHILS % 0.1 % (0.0-5.0); HEMATOCRIT. 26.8 % (42.0-52.0); MEAN CORPUSCULAR VOLUME 91.7 fL (80.0-94.0); MEAN PLATELET VOLUME 8.7 fl (7.4-10.4); NEUTROPHILS % 81.8 % (40.0-76.0); PLATELET 159 x1000/uL (130-400); RED BLOOD CELL COUNT 2.92 mill/uL (4.7-6.1); RED CELL DISTRIBUTION WIDTH 14.6 % (11.6-14.6)
[2018-03-14] MEDS: ATORVASTATIN CALCIUM 40MG TABLET PO SCH (22:40)
[2018-03-14] MEDS: HYDROCODONE/APAP 7.5/325MG 1 TAB TABLET PO PRN (22:41)
[2018-03-15] VITALS (30 sets, daily range): BP systolic 96–159; BP diastolic 18–107
[2018-03-15] MEDS ORDERED: HYDROCODONE/APAP 7.5/325MG 1 TAB TABLET PO PRN
[2018-03-15] MEDS: LEVOTHYROXINE SODIUM 50MCG TABLET PO SCH (06:02)
[2018-03-15] MEDS: CLONIDINE 0.1MG TABLET PO SCH ×3 (06:02→22:00)
[2018-03-15] MEDS: HYDRALAZINE HCL 100MG TABLET PO SCH ×3 (06:03→22:00)
[2018-03-15] MEDS: BLOOD SUGAR DIAGNOSTIC STRIP TEST SCH ×5 (06:04→20:39)
[2018-03-15] MEDS: HYDROCODONE/APAP 7.5/325MG 1 TAB TABLET PO PRN ×2 (06:04→22:20)
[2018-03-15] MEDS: INSULIN LISPRO 100 UNITS/ML SUBCUT SCH ×5 (06:04→20:53)
[2018-03-15] MEDS: CARVEDILOL 25MG TABLET PO SCH ×2 (07:56→20:57)
[2018-03-15] MEDS: FAMOTIDINE 20MG TABLET PO SCH (08:00)
[2018-03-15] MEDS: MINOXIDIL 2.5MG TABLET PO SCH ×2 (08:00→20:59)
[2018-03-15] MEDS: MORPHINE SULFATE 4 MG/ML CPJ (NOT FOR IM USE) IV PRN (15:49)
[2018-03-15] MEDS: ATORVASTATIN CALCIUM 40MG TABLET PO SCH (20:56)
[2018-03-16] VITALS (12 sets, daily range): BP systolic 99–158; BP diastolic 41–84
[2018-03-16] MEDS: HYDROCODONE/APAP 7.5/325MG 1 TAB TABLET PO PRN (03:54)
[2018-03-16] MEDS: HYDRALAZINE HCL 100MG TABLET PO SCH ×3 (06:49→23:01)
[2018-03-16] MEDS: CLONIDINE 0.1MG TABLET PO SCH ×3 (06:50→23:02)
[2018-03-16] MEDS: LEVOTHYROXINE SODIUM 50MCG TABLET PO SCH (06:58)
[2018-03-16] MEDS: BLOOD SUGAR DIAGNOSTIC STRIP TEST SCH ×4 (07:30→20:54)
[2018-03-16] MEDS: INSULIN LISPRO 100 UNITS/ML SUBCUT SCH ×4 (08:00→21:00)
[2018-03-16] MEDS: MINOXIDIL 2.5MG TABLET PO SCH ×2 (08:45→21:01)
[2018-03-16] MEDS: FAMOTIDINE 20MG TABLET PO SCH (08:45)
[2018-03-16] MEDS: CARVEDILOL 25MG TABLET PO SCH ×2 (08:47→21:00)
[2018-03-16] MEDS: LACTULOSE 20G/30ML UDC PO SCH (18:56)
[2018-03-16] MEDS: ATORVASTATIN CALCIUM 40MG TABLET PO SCH (20:58)
[2018-03-17] VITALS (13 sets, daily range): BP systolic 104–144; BP diastolic 40–78
[2018-03-17] MEDS: HYDROCODONE/APAP 7.5/325MG 1 TAB TABLET PO PRN ×2 (00:13→18:42)
[2018-03-17] MEDS: CLONIDINE 0.1MG TABLET PO SCH ×3 (06:50→23:00)
[2018-03-17] MEDS: HYDRALAZINE HCL 100MG TABLET PO SCH ×3 (06:50→22:53)
[2018-03-17] MEDS: LEVOTHYROXINE SODIUM 50MCG TABLET PO SCH (06:55)
[2018-03-17] MEDS: BLOOD SUGAR DIAGNOSTIC STRIP TEST SCH ×4 (07:30→21:58)
[2018-03-17] MEDS: INSULIN LISPRO 100 UNITS/ML SUBCUT SCH ×4 (08:00→21:00)
[2018-03-17] MEDS: CARVEDILOL 25MG TABLET PO SCH ×2 (09:00→21:58)
[2018-03-17] MEDS: MINOXIDIL 2.5MG TABLET PO SCH ×2 (09:00→21:00)
[2018-03-17] MEDS: LACTULOSE 20G/30ML UDC PO SCH ×4 (09:26→18:40)
[2018-03-17] MEDS: FAMOTIDINE 20MG TABLET PO SCH (09:26)
[2018-03-17] MEDS: ATORVASTATIN CALCIUM 40MG TABLET PO SCH (21:58)
[2018-03-18] VITALS (12 sets, daily range): BP systolic 85–176; BP diastolic 41–66
[2018-03-18] MEDS: HYDRALAZINE HCL 100MG TABLET PO SCH ×3 (05:54→21:19)
[2018-03-18] MEDS: CLONIDINE 0.1MG TABLET PO SCH ×3 (05:55→21:18)
[2018-03-18] MEDS: BLOOD SUGAR DIAGNOSTIC STRIP TEST SCH ×4 (07:30→21:19)
[2018-03-18] MEDS: INSULIN LISPRO 100 UNITS/ML SUBCUT SCH ×4 (08:00→21:17)
[2018-03-18] MEDS: LACTULOSE 20G/30ML UDC PO SCH ×3 (09:07→17:00)
[2018-03-18] MEDS: CARVEDILOL 25MG TABLET PO SCH ×2 (09:07→21:18)
[2018-03-18] MEDS: FAMOTIDINE 20MG TABLET PO SCH (09:07)
[2018-03-18] MEDS: MINOXIDIL 2.5MG TABLET PO SCH ×2 (09:18→21:18)
[2018-03-18] MEDS: LEVOTHYROXINE SODIUM 50MCG TABLET PO SCH (09:18)
[2018-03-18] MEDS: HYDROCODONE/APAP 7.5/325MG 1 TAB TABLET PO PRN (09:56)
[2018-03-18] MEDS: AMLODIPINE 5MG TABLET PO SCH (12:05)
[2018-03-18] MEDS: ATORVASTATIN CALCIUM 40MG TABLET PO SCH (21:17)
[2018-03-19] VITALS (12 sets, daily range): BP systolic 105–144; BP diastolic 35–60
[2018-03-19] MEDS: HYDRALAZINE HCL 100MG TABLET PO SCH ×3 (05:56→21:59)
[2018-03-19] MEDS: CLONIDINE 0.1MG TABLET PO SCH ×3 (05:56→22:00)
[2018-03-19] MEDS: INSULIN LISPRO 100 UNITS/ML SUBCUT SCH ×4 (08:00→22:03)
[2018-03-19] MEDS: BLOOD SUGAR DIAGNOSTIC STRIP TEST SCH ×4 (08:06→21:00)
[2018-03-19] MEDS: LEVOTHYROXINE SODIUM 50MCG TABLET PO SCH (08:07)
[2018-03-19] MEDS: MINOXIDIL 2.5MG TABLET PO SCH ×2 (08:08→21:20)
[2018-03-19] MEDS: LACTULOSE 20G/30ML UDC PO SCH ×3 (08:09→17:40)
[2018-03-19] MEDS: AMLODIPINE 5MG TABLET PO SCH (08:09)
[2018-03-19] MEDS: FAMOTIDINE 20MG TABLET PO SCH (08:09)
[2018-03-19] MEDS: CARVEDILOL 25MG TABLET PO SCH ×2 (08:09→21:21)
[2018-03-19 11:54] LABS: BASOPHILS % 0.3 % (0.0-2.0); EOSINOPHILS % 3.7 % (0.0-5.0); HEMATOCRIT. 23.7 % (42.0-52.0); HEMOGLOBIN. 7.9 g/dL (14.0-18.0); LYMPHOCYTES % 7.8 % (20.0-50.0); MEAN CORPUSCULAR HEMOGLOBIN 30.6 pg (28.0-32.0); MEAN CORPUSCULAR VOLUME 92.1 fL (80.0-94.0); MEAN PLATELET VOLUME 8.7 fl (7.4-10.4); MONOCYTES % 9.2 % (2.0-8.0); PLATELET 146 x1000/uL (130-400); RED BLOOD CELL COUNT 2.58 mill/uL (4.7-6.1)
[2018-03-19] MEDS: ATORVASTATIN CALCIUM 40MG TABLET PO SCH (21:17)
[2018-03-20] VITALS (9 sets, daily range): BP systolic 103–163; BP diastolic 39–92
[2018-03-20] MEDS: LEVOTHYROXINE SODIUM 50MCG TABLET PO SCH (05:24)
[2018-03-20] MEDS: CLONIDINE 0.1MG TABLET PO SCH (05:24)
[2018-03-20] MEDS: HYDRALAZINE HCL 100MG TABLET PO SCH (05:24)
[2018-03-20 06:50] LABS: HEMATOCRIT. 25.9 % (42.0-52.0); HEMOGLOBIN. 8.6 g/dL (14.0-18.0); MEAN CORPUSCULAR HEMOGLOBIN 30.7 pg (28.0-32.0); MEAN CORPUSCULAR VOLUME 92.4 fL (80.0-94.0); MEAN PLATELET VOLUME 8.8 fl (7.4-10.4); PLATELET 163 x1000/uL (130-400); RED CELL DISTRIBUTION WIDTH 13.9 % (11.6-14.6)
[2018-03-20] MEDS: INSULIN LISPRO 100 UNITS/ML SUBCUT SCH ×2 (08:00→12:00)
[2018-03-20] MEDS: BLOOD SUGAR DIAGNOSTIC STRIP TEST SCH ×2 (08:14→12:00)
[2018-03-20] MEDS: FAMOTIDINE 20MG TABLET PO SCH (08:16)
[2018-03-20] MEDS: LACTULOSE 20G/30ML UDC PO SCH ×2 (08:16→12:02)
[2018-03-20] MEDS: MINOXIDIL 2.5MG TABLET PO SCH (08:22)
[2018-03-20] MEDS: CARVEDILOL 25MG TABLET PO SCH (08:22)
[2018-03-20 10:14] LABS: PLATELET ESTIMATE NORMAL
== END 2018-03-20 14:19 | DRG 64 ==
LOC: ER 01:57 → MICUSO 04:55 → EDBEDREQSVC 05:03 → EDBEDREQ 05:03 → EDBEDREQTM 05:03 → ENRESERV 05:50 → 5EST 03-15 11:55
PROVIDERS: ADMIT Internal Medicine; ATTEND Internal Medicine Nephrology
PROC: 30233N1 Transfusion of Nonautologous Red Blood Cells into Peripheral Vein, Percutaneous Approach (ICD-10-PCS; 2018-03-11)
PROC: 02HV33Z Insertion of Infusion Device into Superior Vena Cava, Percutaneous Approach (ICD-10-PCS; 2018-03-12)
PROC: B548ZZA Ultrasonography of Superior Vena Cava, Guidance (ICD-10-PCS; 2018-03-12)
PROC: 4A00X4Z Measurement of Central Nervous Electrical Activity, External Approach (ICD-10-PCS; principal; 2018-03-14)
PROC: 5A1D70Z Performance of Urinary Filtration, Intermittent, Less than 6 Hours Per Day (ICD-10-PCS; 2018-03-14)
PROC: 5A1D70Z Performance of Urinary Filtration, Intermittent, Less than 6 Hours Per Day (ICD-10-PCS; 2018-03-19)
DX: I61.0 Nontraumatic intracerebral hemorrhage in hemisphere, subcortical (principal); G93.41 Metabolic encephalopathy; N18.6 End stage renal disease; I69.354 Hemiplegia and hemiparesis following cerebral infarction affecting left non-dominant side; I16.1 Hypertensive emergency; I12.0 Hypertensive chronic kidney disease with stage 5 chronic kidney disease or end stage renal disease; E11.22 Type 2 diabetes mellitus with diabetic chronic kidney disease; I12.9 Hypertensive chronic kidney disease with stage 1 through stage 4 chronic kidney disease, or unspecified chronic kidney disease; D63.1 Anemia in chronic kidney disease; E03.9 Hypothyroidism, unspecified; E11.649 Type 2 diabetes mellitus with hypoglycemia without coma; E78.5 Hyperlipidemia, unspecified; F02.80 Dementia in other diseases classified elsewhere, unspecified severity, without behavioral disturbance, psychotic disturbance, mood disturbance, and anxiety; G30.9 Alzheimer's disease, unspecified; G40.909 Epilepsy, unspecified, not intractable, without status epilepticus; G89.29 Other chronic pain; F43.10 Post-traumatic stress disorder, unspecified; N28.1 Cyst of kidney, acquired; M54.5 Low back pain; F32.9 Major depressive disorder, single episode, unspecified; Z90.49 Acquired absence of other specified parts of digestive tract; Z91.15 Patient's noncompliance with renal dialysis; Z79.4 Long term (current) use of insulin
CPT/HCPCS: 36415; 36569; 36600; 71045; 76770; 76937; 80048; 80061; 82375; 82550; 82553; 82805; 82962; 83036; 83605; 83721; 83735; 83880; 84439; 84443; 84484; 85379; 86705; 86709; 86803; 86850; 86900; 86920; 87340; 92610; 93005; 93306; 93970; 96365; 96375; 97162; 97166; 97530; 99285; C1725; J0360; J1100; J1815; J1940; J1953; J2270; J3490; J7030; J7050; J7060; P9016

== ENCOUNTER 2018-03-22 20:18 | Inpatient (IN) | payer MEDICARE, MEDICAID, OTHER ==
[~2018-03-22] VITALS: Ht 162.6 cm; Wt 78.9 kg
[~2018-03-22 20:18] MED LIST changes: +CHOL400C8 MT; +CHOL400T15 MT; +FERR325T6 MT; +FOLI1TAB33 MT
[2018-03-22 21:46] LABS: BASOPHILS % 0.3 % (0.0-2.0); EOSINOPHILS % 3.1 % (0.0-5.0); HEMOGLOBIN. 7.9 g/dL (14.0-18.0); LYMPHOCYTES % 11.8 % (20.0-50.0); MEAN CORPUSCULAR HEMOGLOBIN 31.3 pg (28.0-32.0); MEAN CORPUSCULAR VOLUME 91.1 fL (80.0-94.0); MEAN PLATELET VOLUME 8.3 fl (7.4-10.4); MONOCYTES % 10.1 % (2.0-8.0); NEUTROPHILS % 74.7 % (40.0-76.0); PLATELET 165 x1000/uL (130-400); RED BLOOD CELL COUNT 2.52 mill/uL (4.7-6.1)
[2018-03-22 21:53] LABS: CHLORIDE 107 mEq/L (98-107)
[2018-03-22] MEDS ORDERED: POTASSIUM CHLORIDE 20MEQ TABLET SR PO ONE (22:45)
[2018-03-22 23:55] VITALS: BP 133/56
[2018-03-23] MEDS ORDERED: GUAIFENESIN 200MG/10ML SUGAR FREE UDC PO PRN (00:45)
[2018-03-23] MEDS ORDERED: IPRATROPIUM/ALBUTEROL 0.5-3(2.5)MG/3ML NEB INH PRN (00:45)
[2018-03-23] MEDS ORDERED: ACETAMINOPHEN 325MG TABLET PO PRN (00:45)
[2018-03-23] MEDS ORDERED: DOCUSATE SODIUM 100MG CAPSULE PO PRN (00:45)
[2018-03-23] MEDS ORDERED: DIPHENHYDRAMINE 50MG/ML VIAL IV PRN (00:45)
[2018-03-23] MEDS ORDERED: HYDROMORPHONE HCL/PF 2MG/ML CPJ IV PRN (00:45)
[2018-03-23] MEDS ORDERED: ONDANSETRON HCL 4MG/2ML INJ IV PRN (00:45)
[2018-03-23] MEDS: HYDROCODONE/ACETAMINOPHEN 5/325MG TABLET PO PRN ×3 (01:40→15:57)
[2018-03-23 04:00] VITALS: BP 116/49
[2018-03-23 08:00] VITALS: BP 122/52
[2018-03-23] MEDS: AMLODIPINE 10MG TABLET PO SCH (08:47)
[2018-03-23 12:00] VITALS: BP 126/38
[2018-03-23] MEDS: DONEPEZIL HCL 10MG TABLET PO SCH (12:44)
[2018-03-23] MEDS: LEVOTHYROXINE SODIUM 50MCG TABLET PO SCH (12:44)
[2018-03-23] MEDS: SERTRALINE HCL 100MG TABLET PO SCH (12:44)
[2018-03-23] MEDS: LEVETIRACETAM 500MG TABLET PO SCH (12:44)
[2018-03-23] MEDS: GLIPIZIDE 5MG TABLET PO SCH (12:45)
[2018-03-23 16:00] VITALS: BP 126/59
[2018-03-23] MEDS: FISH OIL/OMEGA-3 FATTY ACIDS 1000MG CAPSULE PO SCH (16:32)
[2018-03-23] MEDS: CLONIDINE 0.1MG TABLET PO SCH (16:32)
[2018-03-23 20:00] VITALS: BP 173/65
[2018-03-23] MEDS: CARVEDILOL 25MG TABLET PO SCH (20:41)
[2018-03-23] MEDS: CLONIDINE 0.1MG TABLET PO PRN (20:41)
[2018-03-23] MEDS: ATORVASTATIN CALCIUM 40MG TABLET PO SCH (20:42)
[2018-03-24] VITALS: BP 132/64
[2018-03-24 04:00] VITALS: BP 150/55
[2018-03-24] MEDS: LEVOTHYROXINE SODIUM 50MCG TABLET PO SCH (07:40)
[2018-03-24 08:00] VITALS: BP 173/61
[2018-03-24] MEDS: FISH OIL/OMEGA-3 FATTY ACIDS 1000MG CAPSULE PO SCH ×2 (09:00→16:44)
[2018-03-24] MEDS: DONEPEZIL HCL 10MG TABLET PO SCH (09:00)
[2018-03-24] MEDS: SERTRALINE HCL 100MG TABLET PO SCH (09:00)
[2018-03-24] MEDS: CLONIDINE 0.1MG TABLET PO SCH ×2 (09:00→16:44)
[2018-03-24] MEDS: CARVEDILOL 25MG TABLET PO SCH ×2 (09:00→20:51)
[2018-03-24] MEDS: AMLODIPINE 10MG TABLET PO SCH (09:00)
[2018-03-24] MEDS: LEVETIRACETAM 500MG TABLET PO SCH (09:00)
[2018-03-24] MEDS: GLIPIZIDE 5MG TABLET PO SCH (09:00)
[2018-03-24 11:26] LABS: BASOPHILS % 0.4 % (0.0-2.0); EOSINOPHILS % 3.5 % (0.0-5.0); HEMATOCRIT. 23.1 % (42.0-52.0); LYMPHOCYTES % 13.9 % (20.0-50.0); MEAN CORPUSCULAR HEMOGLOBIN 31.4 pg (28.0-32.0); MEAN CORPUSCULAR VOLUME 91.3 fL (80.0-94.0); MEAN PLATELET VOLUME 8.3 fl (7.4-10.4); MONOCYTES % 9.4 % (2.0-8.0); NEUTROPHILS % 72.8 % (40.0-76.0); PLATELET 170 x1000/uL (130-400); RED BLOOD CELL COUNT 2.53 mill/uL (4.7-6.1); RED CELL DISTRIBUTION WIDTH 13.7 % (11.6-14.6)
[2018-03-24 11:33] LABS: CHLORIDE 110 mEq/L (98-107)
[2018-03-24 11:54] LABS: INR 1.1; PARTIAL THROMBOPLASTIN TIME 31.3 sec (23.4-31.0); PROTHROMBIN TIME 11.4 sec (9.1-11.1)
[2018-03-24 12:00] VITALS: BP 170/59
[2018-03-24] MEDS ORDERED: DEXTROSE 50% WATER 50ML SYRINGE IV NR (14:00)
[2018-03-24 16:00] VITALS: BP 195/75
[2018-03-24 20:00] VITALS: BP 166/65
[2018-03-24] MEDS: ATORVASTATIN CALCIUM 40MG TABLET PO SCH (20:51)
[2018-03-24] MEDS: CLONIDINE 0.1MG TABLET PO PRN (20:51)
[2018-03-25] VITALS (19 sets, daily range): BP systolic 108–186; BP diastolic 58–79
[2018-03-25] MEDS: CLONIDINE 0.1MG TABLET PO PRN (06:23)
[2018-03-25] MEDS ORDERED: CEFAZOLIN 1000MG PREMIX 50 ML IV NR (07:15)
[2018-03-25] MEDS ORDERED: LIDOCAINE HCL 1% 20ML VIAL (Pyxis) INJ ONE (07:24)
[2018-03-25] MEDS ORDERED: HEPARIN 1000 UNITS/ML 10ML ONE (07:24)
[2018-03-25] MEDS ORDERED: CEFAZOLIN 1000MG PREMIX 50 ML IV ONE (07:24)
[2018-03-25] MEDS ORDERED: SODIUM BICARBONATE 4% (2.4MEQ) 5ML VIAL IV ONE (07:24)
[2018-03-25] MEDS ORDERED: IOHEXOL-300 100 ML BOTTLE ONE (08:07)
[2018-03-25] MEDS ORDERED: FENTANYL CITRATE/PF 50MCG/ML 2ML VIAL ONE (08:10)
[2018-03-25] MEDS ORDERED: HEPARIN 5000 UNITS/ML VIAL IV ONE (08:30)
[2018-03-25] MEDS ORDERED: HEPARIN 1000 UNITS/ML 10ML IV ONE (08:30)
[2018-03-25] MEDS ORDERED: FENTANYL CITRATE/PF 50MCG/ML 2ML VIAL IV ONE (08:45)
[2018-03-25] MEDS: GLIPIZIDE 5MG TABLET PO SCH (09:00)
[2018-03-25] MEDS: CLONIDINE 0.1MG TABLET PO SCH ×2 (10:30→17:00)
[2018-03-25] MEDS: DONEPEZIL HCL 10MG TABLET PO SCH (10:30)
[2018-03-25] MEDS: FISH OIL/OMEGA-3 FATTY ACIDS 1000MG CAPSULE PO SCH ×2 (10:30→18:27)
[2018-03-25] MEDS: SERTRALINE HCL 100MG TABLET PO SCH (10:31)
[2018-03-25] MEDS: AMLODIPINE 10MG TABLET PO SCH (10:31)
[2018-03-25] MEDS: LEVOTHYROXINE SODIUM 50MCG TABLET PO SCH (10:31)
[2018-03-25] MEDS: CARVEDILOL 25MG TABLET PO SCH ×2 (10:31→20:52)
[2018-03-25] MEDS: LEVETIRACETAM 500MG TABLET PO SCH (10:31)
[2018-03-25] MEDS ORDERED: DEXTROSE 50% WATER 50ML SYRINGE IV PRN (13:00)
[2018-03-25] MEDS: INSULIN LISPRO 100 UNITS/ML SUBCUT SCH ×3 (13:10→20:58)
[2018-03-25] MEDS: BLOOD SUGAR DIAGNOSTIC STRIP TEST SCH ×2 (18:31→20:52)
[2018-03-25] MEDS: ATORVASTATIN CALCIUM 40MG TABLET PO SCH (20:52)
[2018-03-26 00:05] VITALS: BP 135/76
[2018-03-26 04:00] VITALS: BP 144/59
[2018-03-26] MEDS: BLOOD SUGAR DIAGNOSTIC STRIP TEST SCH ×4 (07:40→20:33)
[2018-03-26] MEDS: INSULIN LISPRO 100 UNITS/ML SUBCUT SCH ×4 (07:43→20:33)
[2018-03-26 08:00] VITALS: BP 156/54
[2018-03-26] MEDS: LEVETIRACETAM 500MG TABLET PO SCH (09:10)
[2018-03-26] MEDS: FISH OIL/OMEGA-3 FATTY ACIDS 1000MG CAPSULE PO SCH ×2 (09:10→17:48)
[2018-03-26] MEDS: DONEPEZIL HCL 10MG TABLET PO SCH (09:11)
[2018-03-26] MEDS: GLIPIZIDE 5MG TABLET PO SCH (09:11)
[2018-03-26] MEDS: SERTRALINE HCL 100MG TABLET PO SCH (09:11)
[2018-03-26] MEDS: CLONIDINE 0.1MG TABLET PO SCH ×2 (09:11→17:47)
[2018-03-26] MEDS: AMLODIPINE 10MG TABLET PO SCH (09:11)
[2018-03-26] MEDS: LEVOTHYROXINE SODIUM 50MCG TABLET PO SCH (09:11)
[2018-03-26] MEDS: CARVEDILOL 25MG TABLET PO SCH ×2 (09:12→20:41)
[2018-03-26 12:00] VITALS: BP 131/55
[2018-03-26 16:00] VITALS: BP 134/57
[2018-03-26 20:00] VITALS: BP 128/58
[2018-03-26] MEDS: ATORVASTATIN CALCIUM 40MG TABLET PO SCH (20:41)
[2018-03-27] VITALS: BP 164/64
[2018-03-27 04:00] VITALS: BP 159/99
[2018-03-27 04:30] VITALS: BP 140/86
[2018-03-27] MEDS: BLOOD SUGAR DIAGNOSTIC STRIP TEST SCH (07:04)
[2018-03-27] MEDS: INSULIN LISPRO 100 UNITS/ML SUBCUT SCH (07:48)
[2018-03-27] MEDS: LEVETIRACETAM 500MG TABLET PO SCH (08:44)
[2018-03-27] MEDS: LEVOTHYROXINE SODIUM 50MCG TABLET PO SCH (08:44)
[2018-03-27] MEDS: CARVEDILOL 25MG TABLET PO SCH (08:45)
[2018-03-27] MEDS: AMLODIPINE 10MG TABLET PO SCH (08:45)
[2018-03-27] MEDS: DONEPEZIL HCL 10MG TABLET PO SCH (08:45)
[2018-03-27] MEDS: FISH OIL/OMEGA-3 FATTY ACIDS 1000MG CAPSULE PO SCH (08:46)
[2018-03-27] MEDS: GLIPIZIDE 5MG TABLET PO SCH (08:46)
[2018-03-27] MEDS: SERTRALINE HCL 100MG TABLET PO SCH (08:46)
[2018-03-27 12:00] VITALS: BP 131/57
[2018-03-27 13:28] VITALS: BP 131/57
== END 2018-03-27 15:20 | DRG 252 ==
LOC: ER 20:18 → EDBEDREQTM 22:44 → EDBEDREQ 22:44 → ENRESERV 22:57 → 7WST 03-23 01:27
PROVIDERS: ADMIT Hospitalist; ATTEND Hospitalist
PROC: 5A1D70Z Performance of Urinary Filtration, Intermittent, Less than 6 Hours Per Day (ICD-10-PCS; principal; 2018-03-25)
PROC: 05CY3ZZ Extirpation of Matter from Upper Vein, Percutaneous Approach (ICD-10-PCS; 2018-03-25)
PROC: 057Y3ZZ Dilation of Upper Vein, Percutaneous Approach (ICD-10-PCS; 2018-03-25)
PROC: 03CY3ZZ Extirpation of Matter from Upper Artery, Percutaneous Approach (ICD-10-PCS; 2018-03-25)
PROC: B5181ZA Fluoroscopy of Superior Vena Cava using Low Osmolar Contrast, Guidance (ICD-10-PCS; 2018-03-25)
PROC: B51W1ZZ Fluoroscopy of Dialysis Shunt/Fistula using Low Osmolar Contrast (ICD-10-PCS; 2018-03-25)
PROC: B31J1ZZ Fluoroscopy of Left Upper Extremity Arteries using Low Osmolar Contrast (ICD-10-PCS; 2018-03-25)
DX: T82.858A Stenosis of other vascular prosthetic devices, implants and grafts, initial encounter (principal); N18.6 End stage renal disease; I50.33 Acute on chronic diastolic (congestive) heart failure; I13.2 Hypertensive heart and chronic kidney disease with heart failure and with stage 5 chronic kidney disease, or end stage renal disease; D63.1 Anemia in chronic kidney disease; E78.5 Hyperlipidemia, unspecified; F32.9 Major depressive disorder, single episode, unspecified; L89.892 Pressure ulcer of other site, stage 2; E11.22 Type 2 diabetes mellitus with diabetic chronic kidney disease; E03.9 Hypothyroidism, unspecified; E11.40 Type 2 diabetes mellitus with diabetic neuropathy, unspecified; F43.10 Post-traumatic stress disorder, unspecified; M54.5 Low back pain; Y83.2 Surgical operation with anastomosis, bypass or graft as the cause of abnormal reaction of the patient, or of later complication, without mention of misadventure at the time of the procedure; G89.4 Chronic pain syndrome; Z99.2 Dependence on renal dialysis; Z86.73 Personal history of transient ischemic attack (TIA), and cerebral infarction without residual deficits; Z90.49 Acquired absence of other specified parts of digestive tract; Y92.89 Other specified places as the place of occurrence of the external cause; Z88.8 Allergy status to other drugs, medicaments and biological substances; Z79.899 Other long term (current) drug therapy; Z79.84 Long term (current) use of oral hypoglycemic drugs
CPT/HCPCS: 36415; 36905; 71045; 82962; 84134; 93005; 93970; 99152; 99153; 99285; C1725; C1766; C1769; C2630; J0690; J1170; J1644; J1815; J3010; J3490; J7050; Q9967; G0500

== ENCOUNTER 2018-03-29 16:58 | Inpatient (IN) | payer MEDICARE, OTHER, MEDICAID ==
[~2018-03-29] VITALS: Ht 162.6 cm; Wt 75.4 kg
[2018-03-29] MEDS ORDERED: CLONIDINE 0.2MG TABLET PO ONE (17:15)
[2018-03-29] MEDS ORDERED: ACETAMINOPHEN 325MG TABLET PO ONE (17:15)
[2018-03-29 18:02] LABS: CHLORIDE 105 mEq/L (98-107)
[2018-03-29 18:04] LABS: INR 1.2; PARTIAL THROMBOPLASTIN TIME 37.6 sec (23.4-31.0); PROTHROMBIN TIME 12.2 sec (9.1-11.1)
[2018-03-29 18:05] LABS: BASOPHILS % 0.5 % (0.0-2.0); EOSINOPHILS % 1.7 % (0.0-5.0); HEMATOCRIT. 27.4 % (42.0-52.0); HEMOGLOBIN. 9.2 g/dL (14.0-18.0); LYMPHOCYTES % 8.1 % (20.0-50.0); MEAN CORPUSCULAR VOLUME 92.1 fL (80.0-94.0); MONOCYTES % 8.5 % (2.0-8.0); NEUTROPHILS % 81.2 % (40.0-76.0); PLATELET 204 x1000/uL (130-400); RED BLOOD CELL COUNT 2.98 mill/uL (4.7-6.1); RED CELL DISTRIBUTION WIDTH 13.9 % (11.6-14.6)
[2018-03-29] MEDS ORDERED: HYDRALAZINE 20MG/ML VIAL IV ONE (19:00)
[2018-03-29] MEDS ORDERED: ASPIRIN 81MG TABLET PO ONE (20:15)
[2018-03-29 21:30] VITALS: BP 132/57
[2018-03-29 22:00] VITALS: BP 132/50
[2018-03-29] MEDS ORDERED: ONDANSETRON HCL 4MG/2ML INJ IV PRN (23:15)
[2018-03-29] MEDS: CLONIDINE 0.1MG TABLET PO SCH (23:15)
[2018-03-29] MEDS ORDERED: LORAZEPAM 2MG/ML CPJ IV PRN (23:15)
[2018-03-29 23:55] VITALS: BP 145/54
[2018-03-29] MEDS: METOPROLOL TARTRATE 25MG TABLET PO SCH (23:57)
[2018-03-29] MEDS: AMLODIPINE 10MG TABLET PO SCH (23:58)
[2018-03-29] MEDS: DONEPEZIL HCL 10MG TABLET PO SCH (23:58)
[2018-03-30 04:00] VITALS: BP 151/58
[2018-03-30 08:00] VITALS: BP 165/63
[2018-03-30] MEDS: GLIPIZIDE 5MG TABLET PO SCH (09:09)
[2018-03-30] MEDS: AMLODIPINE 10MG TABLET PO SCH (09:10)
[2018-03-30] MEDS: METOPROLOL TARTRATE 25MG TABLET PO SCH ×2 (09:11→21:02)
[2018-03-30] MEDS: LISINOPRIL 10MG TABLET PO SCH (09:11)
[2018-03-30] MEDS: CLONIDINE 0.1MG TABLET PO SCH ×2 (09:12→21:03)
[2018-03-30] MEDS: LEVETIRACETAM 500MG TABLET PO SCH (09:12)
[2018-03-30] MEDS: DONEPEZIL HCL 10MG TABLET PO SCH (09:12)
[2018-03-30] MEDS: LEVOTHYROXINE SODIUM 50MCG TABLET PO SCH (09:13)
[2018-03-30] MEDS: SERTRALINE HCL 100MG TABLET PO SCH (09:29)
[2018-03-30] MEDS: ENOXAPARIN 30MG/0.3ML SYR SUBCUT SCH (10:40)
[2018-03-30] MEDS: HYDROCODONE/ACETAMINOPHEN 5/325MG TABLET PO PRN ×2 (10:41)
[2018-03-30 12:00] VITALS: BP 148/79
[2018-03-30 16:00] VITALS: BP 115/20
[2018-03-30 20:00] VITALS: BP 133/89
[2018-03-30 20:32] VITALS: BP 143/53
[2018-03-30] MEDS: ATORVASTATIN CALCIUM 40MG TABLET PO SCH (21:02)
[2018-03-30] MEDS: IPRATROPIUM/ALBUTEROL 0.5-3(2.5)MG/3ML NEB HHN PRN (23:59)
[2018-03-31] VITALS: BP 127/61
[2018-03-31 04:00] VITALS: BP 135/53
[2018-03-31] MEDS: IPRATROPIUM/ALBUTEROL 0.5-3(2.5)MG/3ML NEB HHN PRN (04:31)
[2018-03-31 08:00] VITALS: BP 144/50
[2018-03-31] MEDS: GLIPIZIDE 5MG TABLET PO SCH (09:08)
[2018-03-31] MEDS: LEVETIRACETAM 500MG TABLET PO SCH (09:08)
[2018-03-31] MEDS: AMLODIPINE 10MG TABLET PO SCH (09:10)
[2018-03-31] MEDS: LEVOTHYROXINE SODIUM 50MCG TABLET PO SCH (09:10)
[2018-03-31] MEDS: HYDROCODONE/ACETAMINOPHEN 5/325MG TABLET PO PRN (09:10)
[2018-03-31] MEDS: DONEPEZIL HCL 10MG TABLET PO SCH (09:11)
[2018-03-31] MEDS: CLONIDINE 0.1MG TABLET PO SCH ×2 (09:11→21:00)
[2018-03-31] MEDS: METOPROLOL TARTRATE 25MG TABLET PO SCH ×2 (09:11→21:29)
[2018-03-31] MEDS: ENOXAPARIN 30MG/0.3ML SYR SUBCUT SCH (09:12)
[2018-03-31] MEDS: LISINOPRIL 10MG TABLET PO SCH (09:13)
[2018-03-31] MEDS: SERTRALINE HCL 100MG TABLET PO SCH (09:14)
[2018-03-31] MEDS ORDERED: IPRATROPIUM BROMIDE (0.02%) 0.5MG/2.5ML NEB HHN SCH (11:00)
[2018-03-31] MEDS: MORPHINE SULFATE 4 MG/ML CPJ (NOT FOR IM USE) IV PRN (11:33)
[2018-03-31 12:00] VITALS: BP 92/36
[2018-03-31] MEDS ORDERED: ALBUTEROL (0.083%) 2.5MG/3ML NEB HHN SCH (12:00)
[2018-03-31] MEDS: IPRATROPIUM/ALBUTEROL 0.5-3(2.5)MG/3ML NEB HHN SCH ×2 (13:02→21:46)
[2018-03-31 16:00] VITALS: BP 165/79
[2018-03-31 16:44] LABS: BASOPHILS % 0.2 % (0.0-2.0); EOSINOPHILS % 0.1 % (0.0-5.0); HEMATOCRIT. 25.2 % (42.0-52.0); HEMOGLOBIN. 8.5 g/dL (14.0-18.0); LYMPHOCYTES % 18.8 % (20.0-50.0); MEAN CORPUSCULAR HEMOGLOBIN 30.9 pg (28.0-32.0); MEAN PLATELET VOLUME 8.3 fl (7.4-10.4); MONOCYTES % 13.8 % (2.0-8.0); NEUTROPHILS % 67.1 % (40.0-76.0); PLATELET 231 x1000/uL (130-400); RED BLOOD CELL COUNT 2.74 mill/uL (4.7-6.1); RED CELL DISTRIBUTION WIDTH 13.9 % (11.6-14.6)
[2018-03-31 17:18] LABS: PHOSPHORUS 5.5 mg/dL (2.5-4.9)
[2018-03-31] MEDS: INSULIN LISPRO 100 UNITS/ML SUBCUT SCH ×2 (19:42→21:00)
[2018-03-31] MEDS: BLOOD SUGAR DIAGNOSTIC STRIP TEST SCH ×2 (19:42→21:28)
[2018-03-31] MEDS ORDERED: DEXTROSE 50% WATER 50ML SYRINGE IV ONE (19:51)
[2018-03-31 20:00] VITALS: BP 153/60
[2018-03-31] MEDS: ATORVASTATIN CALCIUM 40MG TABLET PO SCH (21:29)
[2018-04-01] VITALS: BP 148/56
[2018-04-01] MEDS: HYDROCODONE/ACETAMINOPHEN 5/325MG TABLET PO PRN (02:02)
[2018-04-01] MEDS: IPRATROPIUM/ALBUTEROL 0.5-3(2.5)MG/3ML NEB HHN SCH ×4 (03:00→21:56)
[2018-04-01] MEDS: DEXTROSE 50% WATER 50ML SYRINGE IV PRN ×4 (03:07→12:13)
[2018-04-01 04:00] VITALS: BP 139/52
[2018-04-01] MEDS ORDERED: ACETAMINOPHEN 325MG TABLET PO PRN (05:00)
[2018-04-01] MEDS: BLOOD SUGAR DIAGNOSTIC STRIP TEST SCH ×4 (05:18→20:21)
[2018-04-01] MEDS: DEXTROSE 10% WATER 1,000 ML IV SCH (06:19)
[2018-04-01] MEDS: LEVOTHYROXINE SODIUM 50MCG TABLET PO SCH (07:40)
[2018-04-01 08:00] VITALS: BP 134/66
[2018-04-01] MEDS: INSULIN LISPRO 100 UNITS/ML SUBCUT SCH ×4 (08:10→21:00)
[2018-04-01] MEDS: CLONIDINE 0.1MG TABLET PO SCH ×3 (09:00→20:20)
[2018-04-01] MEDS: METOPROLOL TARTRATE 25MG TABLET PO SCH ×2 (09:00→20:20)
[2018-04-01] MEDS: AMLODIPINE 10MG TABLET PO SCH ×2 (09:00→14:17)
[2018-04-01] MEDS: LISINOPRIL 10MG TABLET PO SCH ×2 (09:00→20:20)
[2018-04-01 12:00] VITALS: BP 176/68
[2018-04-01] MEDS: ENOXAPARIN 30MG/0.3ML SYR SUBCUT SCH (12:12)
[2018-04-01] MEDS: DONEPEZIL HCL 10MG TABLET PO SCH (12:12)
[2018-04-01] MEDS: LEVETIRACETAM 500MG TABLET PO SCH (12:12)
[2018-04-01] MEDS: SERTRALINE HCL 100MG TABLET PO SCH (12:12)
[2018-04-01 15:46] LABS: HEMATOCRIT. 27.1 % (42.0-52.0); HEMOGLOBIN. 9.1 g/dL (14.0-18.0); MEAN CORPUSCULAR HEMOGLOBIN 30.7 pg (28.0-32.0); MEAN CORPUSCULAR VOLUME 91.8 fL (80.0-94.0); MEAN PLATELET VOLUME 8.1 fl (7.4-10.4); PLATELET 230 x1000/uL (130-400); RED BLOOD CELL COUNT 2.95 mill/uL (4.7-6.1)
[2018-04-01 16:00] VITALS: BP 127/79
[2018-04-01 16:36] LABS: PLATELET ESTIMATE NORMAL
[2018-04-01] MEDS ORDERED: POTASSIUM CHLORIDE 20MEQ TABLET SR PO NR (17:00)
[2018-04-01 20:00] VITALS: BP 149/65
[2018-04-01] MEDS: ATORVASTATIN CALCIUM 40MG TABLET PO SCH (20:20)
[2018-04-01] MEDS: MORPHINE SULFATE 4 MG/ML CPJ (NOT FOR IM USE) IV PRN (20:21)
[2018-04-02] VITALS: BP 111/44
[2018-04-02] MEDS: DEXTROSE 10% WATER 1,000 ML IV SCH ×2 (01:38→23:38)
[2018-04-02] MEDS: IPRATROPIUM/ALBUTEROL 0.5-3(2.5)MG/3ML NEB HHN SCH ×4 (01:44→21:18)
[2018-04-02 04:00] VITALS: BP 144/54
[2018-04-02] MEDS: INSULIN LISPRO 100 UNITS/ML SUBCUT SCH ×4 (06:39→20:58)
[2018-04-02] MEDS: BLOOD SUGAR DIAGNOSTIC STRIP TEST SCH ×4 (06:39→20:58)
[2018-04-02] MEDS: LEVOTHYROXINE SODIUM 50MCG TABLET PO SCH (06:40)
[2018-04-02 08:00] VITALS: BP 130/53
[2018-04-02] MEDS: CLONIDINE 0.1MG TABLET PO SCH ×2 (09:10→20:57)
[2018-04-02] MEDS: LEVETIRACETAM 500MG TABLET PO SCH (09:10)
[2018-04-02] MEDS: AMLODIPINE 10MG TABLET PO SCH (09:10)
[2018-04-02] MEDS: METOPROLOL TARTRATE 25MG TABLET PO SCH ×2 (09:10→20:57)
[2018-04-02] MEDS: DONEPEZIL HCL 10MG TABLET PO SCH (09:10)
[2018-04-02] MEDS: LISINOPRIL 10MG TABLET PO SCH ×2 (09:10→20:57)
[2018-04-02] MEDS: ENOXAPARIN 30MG/0.3ML SYR SUBCUT SCH (09:11)
[2018-04-02] MEDS: SERTRALINE HCL 100MG TABLET PO SCH (09:12)
[2018-04-02] MEDS: MORPHINE SULFATE 4 MG/ML CPJ (NOT FOR IM USE) IV PRN ×2 (11:04→20:58)
[2018-04-02 12:00] VITALS: BP 147/58
[2018-04-02 16:00] VITALS: BP 150/64
[2018-04-02 20:00] VITALS: BP 129/59
[2018-04-02] MEDS: GUAIFENESIN 600MG ER TABLET PO SCH (20:57)
[2018-04-02] MEDS: ATORVASTATIN CALCIUM 40MG TABLET PO SCH (23:38)
[2018-04-03] VITALS (7 sets, daily range): BP systolic 128–153; BP diastolic 51–72
[2018-04-03] MEDS: IPRATROPIUM/ALBUTEROL 0.5-3(2.5)MG/3ML NEB HHN SCH ×4 (02:44→20:36)
[2018-04-03] MEDS: LEVOTHYROXINE SODIUM 50MCG TABLET PO SCH (06:38)
[2018-04-03] MEDS: INSULIN LISPRO 100 UNITS/ML SUBCUT SCH ×4 (06:38→21:00)
[2018-04-03] MEDS: BLOOD SUGAR DIAGNOSTIC STRIP TEST SCH ×4 (06:38→21:02)
[2018-04-03 06:50] LABS: BASOPHILS % 0.2 % (0.0-2.0); EOSINOPHILS % 0.9 % (0.0-5.0); HEMATOCRIT. 23.4 % (42.0-52.0); HEMOGLOBIN. 7.8 g/dL (14.0-18.0); LYMPHOCYTES % 16.2 % (20.0-50.0); MEAN CORPUSCULAR HEMOGLOBIN 30.7 pg (28.0-32.0); MEAN CORPUSCULAR VOLUME 92.3 fL (80.0-94.0); MEAN PLATELET VOLUME 8.2 fl (7.4-10.4); MONOCYTES % 11.2 % (2.0-8.0); NEUTROPHILS % 71.5 % (40.0-76.0); PLATELET 212 x1000/uL (130-400); RED BLOOD CELL COUNT 2.53 mill/uL (4.7-6.1); RED CELL DISTRIBUTION WIDTH 13.5 % (11.6-14.6)
[2018-04-03 07:00] LABS: CHLORIDE 98 mEq/L (98-107)
[2018-04-03] MEDS: AMLODIPINE 10MG TABLET PO SCH (09:13)
[2018-04-03] MEDS: GUAIFENESIN 600MG ER TABLET PO SCH ×2 (09:13→21:48)
[2018-04-03] MEDS: ENOXAPARIN 30MG/0.3ML SYR SUBCUT SCH (09:13)
[2018-04-03] MEDS: LEVETIRACETAM 500MG TABLET PO SCH (09:14)
[2018-04-03] MEDS: DONEPEZIL HCL 10MG TABLET PO SCH (09:14)
[2018-04-03] MEDS: SERTRALINE HCL 100MG TABLET PO SCH (09:14)
[2018-04-03] MEDS: METOPROLOL TARTRATE 25MG TABLET PO SCH ×2 (09:14→21:50)
[2018-04-03] MEDS: CLONIDINE 0.1MG TABLET PO SCH ×2 (09:15→21:49)
[2018-04-03] MEDS: LISINOPRIL 10MG TABLET PO SCH ×2 (09:16→21:50)
[2018-04-03] MEDS: HYDROCODONE/ACETAMINOPHEN 5/325MG TABLET PO PRN ×2 (09:58→21:49)
[2018-04-03] MEDS: DEXTROSE 10% WATER 1,000 ML IV SCH (16:41)
[2018-04-03] MEDS: ATORVASTATIN CALCIUM 40MG TABLET PO SCH (21:49)
[2018-04-04] VITALS: BP 136/54
[2018-04-04] MEDS: IPRATROPIUM/ALBUTEROL 0.5-3(2.5)MG/3ML NEB HHN SCH ×4 (02:07→21:27)
[2018-04-04 04:00] VITALS: BP 132/55
[2018-04-04 06:43] LABS: CHLORIDE 96 mEq/L (98-107)
[2018-04-04 06:48] LABS: BASOPHILS % 0.2 % (0.0-2.0); EOSINOPHILS % 1.9 % (0.0-5.0); HEMATOCRIT. 23.2 % (42.0-52.0); HEMOGLOBIN. 7.8 g/dL (14.0-18.0); LYMPHOCYTES % 16.2 % (20.0-50.0); MEAN CORPUSCULAR HEMOGLOBIN 30.5 pg (28.0-32.0); MEAN CORPUSCULAR VOLUME 91.2 fL (80.0-94.0); MONOCYTES % 9.9 % (2.0-8.0); NEUTROPHILS % 71.8 % (40.0-76.0); PLATELET 241 x1000/uL (130-400); RED BLOOD CELL COUNT 2.55 mill/uL (4.7-6.1); RED CELL DISTRIBUTION WIDTH 13.4 % (11.6-14.6)
[2018-04-04] MEDS: BLOOD SUGAR DIAGNOSTIC STRIP TEST SCH ×4 (06:49→21:24)
[2018-04-04 08:00] VITALS: BP 144/54
[2018-04-04] MEDS: INSULIN LISPRO 100 UNITS/ML SUBCUT SCH ×4 (08:10→21:00)
[2018-04-04] MEDS: ENOXAPARIN 30MG/0.3ML SYR SUBCUT SCH (08:58)
[2018-04-04] MEDS: SERTRALINE HCL 100MG TABLET PO SCH (08:59)
[2018-04-04] MEDS: LISINOPRIL 10MG TABLET PO SCH ×2 (08:59→21:00)
[2018-04-04] MEDS: LEVETIRACETAM 500MG TABLET PO SCH (08:59)
[2018-04-04] MEDS: AMLODIPINE 10MG TABLET PO SCH (08:59)
[2018-04-04] MEDS: LEVOTHYROXINE SODIUM 50MCG TABLET PO SCH (08:59)
[2018-04-04] MEDS: CLONIDINE 0.1MG TABLET PO SCH ×2 (09:00→21:00)
[2018-04-04] MEDS: METOPROLOL TARTRATE 25MG TABLET PO SCH ×2 (09:00→21:00)
[2018-04-04] MEDS: GUAIFENESIN 600MG ER TABLET PO SCH ×2 (09:00→21:36)
[2018-04-04] MEDS: DONEPEZIL HCL 10MG TABLET PO SCH (09:00)
[2018-04-04 12:00] VITALS: BP 103/69
[2018-04-04 16:08] VITALS: BP 110/32
[2018-04-04] MEDS ORDERED: HYDROCODONE/ACETAMINOPHEN 5/325MG TABLET PO PRN (17:15)
[2018-04-04] MEDS: MORPHINE SULFATE 4 MG/ML CPJ (NOT FOR IM USE) IV PRN (18:45)
[2018-04-04 20:00] VITALS: BP 169/63
[2018-04-04] MEDS: ATORVASTATIN CALCIUM 40MG TABLET PO SCH (21:35)
[2018-04-05] MEDS: IPRATROPIUM/ALBUTEROL 0.5-3(2.5)MG/3ML NEB HHN SCH ×2 (02:15→08:35)
[2018-04-05] MEDS: BLOOD SUGAR DIAGNOSTIC STRIP TEST SCH ×2 (06:43→12:40)
[2018-04-05 08:00] VITALS: BP 173/62
[2018-04-05] MEDS: INSULIN LISPRO 100 UNITS/ML SUBCUT SCH ×2 (08:00→13:10)
[2018-04-05] MEDS: LEVOTHYROXINE SODIUM 50MCG TABLET PO SCH (08:45)
[2018-04-05] MEDS: DONEPEZIL HCL 10MG TABLET PO SCH (08:45)
[2018-04-05] MEDS: AMLODIPINE 10MG TABLET PO SCH (08:45)
[2018-04-05] MEDS: SERTRALINE HCL 100MG TABLET PO SCH (08:45)
[2018-04-05] MEDS: LEVETIRACETAM 500MG TABLET PO SCH (08:45)
[2018-04-05] MEDS: GUAIFENESIN 600MG ER TABLET PO SCH (08:45)
[2018-04-05] MEDS: METOPROLOL TARTRATE 25MG TABLET PO SCH (08:46)
[2018-04-05] MEDS: CLONIDINE 0.1MG TABLET PO SCH (08:46)
[2018-04-05] MEDS: ENOXAPARIN 30MG/0.3ML SYR SUBCUT SCH (08:47)
[2018-04-05] MEDS: LISINOPRIL 10MG TABLET PO SCH (08:49)
[2018-04-05 12:25] VITALS: BP 137/52
[2018-04-05] MEDS: IPRATROPIUM/ALBUTEROL 0.5-3(2.5)MG/3ML NEB HHN PRN (13:09)
[2018-04-05] MEDS: MORPHINE SULFATE 4 MG/ML CPJ (NOT FOR IM USE) IV PRN (15:40)
[2018-04-05 16:00] VITALS: BP 146/58
[2018-04-05 16:15] VITALS: BP 146/58
== END 2018-04-05 18:08 | DRG 291 ==
LOC: ER 17:27 → 7WST 18:57 → ENRESERV 19:57
PROVIDERS: ADMIT Internal Medicine Nephrology; ATTEND Internal Medicine Nephrology
PROC: 5A1D70Z Performance of Urinary Filtration, Intermittent, Less than 6 Hours Per Day (ICD-10-PCS; principal; 2018-04-01)
PROC: 5A1D70Z Performance of Urinary Filtration, Intermittent, Less than 6 Hours Per Day (ICD-10-PCS; 2018-04-04)
DX: I13.2 Hypertensive heart and chronic kidney disease with heart failure and with stage 5 chronic kidney disease, or end stage renal disease (principal); I50.33 Acute on chronic diastolic (congestive) heart failure; N18.6 End stage renal disease; I16.0 Hypertensive urgency; E03.9 Hypothyroidism, unspecified; E11.22 Type 2 diabetes mellitus with diabetic chronic kidney disease; E11.649 Type 2 diabetes mellitus with hypoglycemia without coma; F43.10 Post-traumatic stress disorder, unspecified; F32.9 Major depressive disorder, single episode, unspecified; D64.9 Anemia, unspecified; M54.5 Low back pain; Z99.2 Dependence on renal dialysis; Z88.8 Allergy status to other drugs, medicaments and biological substances; Z79.82 Long term (current) use of aspirin; Z79.899 Other long term (current) drug therapy
CPT/HCPCS: 36415; 71045; 80048; 82962; 83735; 83880; 84100; 84484; 93005; 94640; 94667; 96374; 96375; 97162; 97530; 99285; J1650; J1815; J2270; J7620

== ENCOUNTER 2018-04-06 12:01 | Inpatient (IN) | payer MEDICARE, OTHER, MEDICAID ==
[~2018-04-06] VITALS: Ht 172.7 cm; Wt 65.8 kg
[~2018-04-06 12:01] MED LIST changes: -CHOL400T15 MT
[2018-04-06] MEDS ORDERED: ALBUTEROL (0.5%) 2.5MG/0.5ML NEB HHN ONE (13:00)
[2018-04-06 13:20] LABS: BG BASE EXCESS 3.6 mmol/L (-2.0-2.0); BG CARBOXYHEMOGLOBIN 0.3 % (0.5-1.5); BG DEOXYHEMOGLOBIN 10.3 % (0.0-5.0); BG FRACTION INSPIRED OXYGEN 100; BG HCO3 ACT 27.2 mmol/L (22.0-26.0); BG METHEMOGLOBIN 0.3 % (0.0-1.5); BG OXYGEN SATURATION 89.6 % (92.0-98.5); BG OXYHEMOGLOBIN 89.1 % (94.0-97.0); BG PCO2 36.7 mmHg (35.0-45.0); BG PH 7.487 (7.350-7.450); BG PO2 56.8 mmHg (75.0-100.0); BG SAMPLE SITE LEFT RADIAL; BG VENT MODE MASK - NRB
[2018-04-06] MEDS ORDERED: ONDANSETRON HCL 4MG/2ML INJ IV ONE (14:00)
[2018-04-06 14:12] LABS: BASOPHILS % 0.4 % (0.0-2.0); EOSINOPHILS % 0.9 % (0.0-5.0); HEMATOCRIT. 25.7 % (42.0-52.0); HEMOGLOBIN. 8.7 g/dL (14.0-18.0); LYMPHOCYTES % 8.2 % (20.0-50.0); MEAN CORPUSCULAR HEMOGLOBIN 30.8 pg (28.0-32.0); MEAN CORPUSCULAR VOLUME 91.7 fL (80.0-94.0); MEAN PLATELET VOLUME 8.2 fl (7.4-10.4); MONOCYTES % 6.3 % (2.0-8.0); NEUTROPHILS % 84.2 % (40.0-76.0); PLATELET 317 x1000/uL (130-400); RED BLOOD CELL COUNT 2.81 mill/uL (4.7-6.1); RED CELL DISTRIBUTION WIDTH 13.4 % (11.6-14.6)
[2018-04-06 14:16] LABS: CHLORIDE 100 mEq/L (98-107)
[2018-04-06] MEDS ORDERED: SODIUM CHLORIDE 0.9% 1,000 ML IV ONE (14:22)
[2018-04-06] MEDS ORDERED: PIPERACILLIN/TAZ 3.375G PREMIX 50 ML IV ONE (14:30)
[2018-04-06] MEDS ORDERED: SODIUM CHLORIDE 0.9% 500 ML IV ONE (14:30)
[2018-04-06 21:00] VITALS: BP 137/56
[2018-04-06 21:36] VITALS: BP 137/62
[2018-04-06] MEDS ORDERED: ACETAMINOPHEN 325MG TABLET PO PRN (22:30)
[2018-04-06] MEDS ORDERED: IPRATROPIUM/ALBUTEROL 0.5-3(2.5)MG/3ML NEB INH PRN (22:30)
[2018-04-07] VITALS (12 sets, daily range): BP systolic 128–157; BP diastolic 55–72
[2018-04-07] MEDS ORDERED: VANCOMYCIN 1250MG in DEXTROSE 5% WATER 250ML IV SCH (01:00)
[2018-04-07] MEDS: PIPERACILLIN/TAZ 2.25G PREMIX 50 ML IV SCH ×4 (01:02→23:45)
[2018-04-07] MEDS: BLOOD SUGAR DIAGNOSTIC STRIP TEST SCH ×4 (07:14→21:00)
[2018-04-07] MEDS: INSULIN LISPRO 100 UNITS/ML SUBCUT SCH ×4 (07:20→21:00)
[2018-04-07] MEDS ORDERED: ENOXAPARIN 30MG/0.3ML SYR SUBCUT SCH (09:00)
[2018-04-07] MEDS: LISINOPRIL 20MG TABLET PO SCH (10:39)
[2018-04-07 10:48] LABS: HEMATOCRIT. 25.3 % (42.0-52.0); HEMOGLOBIN. 8.4 g/dL (14.0-18.0); MEAN CORPUSCULAR HEMOGLOBIN 30.5 pg (28.0-32.0); MEAN CORPUSCULAR VOLUME 91.4 fL (80.0-94.0); MEAN PLATELET VOLUME 7.4 fl (7.4-10.4); PLATELET 285 x1000/uL (130-400); RED BLOOD CELL COUNT 2.76 mill/uL (4.7-6.1); RED CELL DISTRIBUTION WIDTH 13.4 % (11.6-14.6)
[2018-04-07] MEDS ORDERED: ACETAMINOPHEN 650MG/20.3ML UDC PO PRN (11:00)
[2018-04-07 11:18] LABS: CHLORIDE 107 mEq/L (98-107)
[2018-04-07 11:36] LABS: PLATELET ESTIMATE NORMAL
[2018-04-07] MEDS ORDERED: IPRATROPIUM/ALBUTEROL 0.5-3(2.5)MG/3ML NEB HHN PRN (13:00)
[2018-04-07 14:54] LABS: BG BASE EXCESS 2.8 mmol/L (-2.0-2.0); BG CARBOXYHEMOGLOBIN 0.3 % (0.5-1.5); BG DEOXYHEMOGLOBIN 9.8 % (0.0-5.0); BG FRACTION INSPIRED OXYGEN 28; BG HCO3 ACT 27.3 mmol/L (22.0-26.0); BG METHEMOGLOBIN 0.1 % (0.0-1.5); BG OXYGEN SATURATION 90.2 % (92.0-98.5); BG OXYHEMOGLOBIN 89.8 % (94.0-97.0); BG PCO2 41.4 mmHg (35.0-45.0); BG PH 7.437 (7.350-7.450); BG PO2 61.7 mmHg (75.0-100.0); BG SAMPLE SITE RIGHT RADIAL; BG TOTAL HEMOGLOBIN 8.1 g/dL (12.0-18.0); BG VENT MODE NASAL CANNULA
[2018-04-07] MEDS: ACETYLCYSTEINE 100MG/ML 10% VIAL 4ML INH SCH (17:20)
[2018-04-07] MEDS: IPRATROPIUM/ALBUTEROL 0.5-3(2.5)MG/3ML NEB HHN SCH ×2 (17:20→21:29)
[2018-04-07] MEDS: LEVETIRACETAM 500MG TABLET PO SCH (17:44)
[2018-04-07] MEDS: DOCUSATE SODIUM 100MG CAPSULE PO SCH (17:44)
[2018-04-07] MEDS: DONEPEZIL HCL 10MG TABLET PO SCH (17:44)
[2018-04-07] MEDS: CLONIDINE 0.1MG TABLET PO SCH (17:44)
[2018-04-07] MEDS: ATORVASTATIN CALCIUM 40MG TABLET PO SCH (20:58)
[2018-04-07] MEDS: CARVEDILOL 25MG TABLET PO SCH (20:59)
[2018-04-07] MEDS: HYDROCODONE/APAP 7.5/325MG 1 TAB TABLET PO PRN (21:00)
[2018-04-08] VITALS (11 sets, daily range): BP systolic 120–165; BP diastolic 50–66
[2018-04-08] MEDS: IPRATROPIUM/ALBUTEROL 0.5-3(2.5)MG/3ML NEB HHN SCH ×7 (01:25→23:53)
[2018-04-08] MEDS: LEVOTHYROXINE SODIUM 50MCG TABLET PO SCH (06:50)
[2018-04-08] MEDS: INSULIN LISPRO 100 UNITS/ML SUBCUT SCH ×4 (06:52→21:00)
[2018-04-08] MEDS: BLOOD SUGAR DIAGNOSTIC STRIP TEST SCH ×4 (06:52→21:00)
[2018-04-08] MEDS: PIPERACILLIN/TAZ 2.25G PREMIX 50 ML IV SCH ×2 (08:58→16:55)
[2018-04-08] MEDS: CARVEDILOL 25MG TABLET PO SCH ×2 (08:58→21:00)
[2018-04-08] MEDS: LEVETIRACETAM 500MG TABLET PO SCH (08:58)
[2018-04-08] MEDS: LISINOPRIL 20MG TABLET PO SCH (08:59)
[2018-04-08] MEDS: DONEPEZIL HCL 10MG TABLET PO SCH (08:59)
[2018-04-08] MEDS: CLONIDINE 0.1MG TABLET PO SCH ×2 (08:59→16:56)
[2018-04-08] MEDS: SERTRALINE HCL 100MG TABLET PO SCH (08:59)
[2018-04-08] MEDS: DOCUSATE SODIUM 100MG CAPSULE PO SCH ×2 (08:59→16:55)
[2018-04-08] MEDS ORDERED: GLIPIZIDE 5MG TABLET PO SCH (09:00)
[2018-04-08] MEDS: ACETYLCYSTEINE 100MG/ML 10% VIAL 4ML INH SCH ×3 (09:50→23:53)
[2018-04-08] MEDS ORDERED: VANCOMYCIN 750 MG PREMIX 150 ML IV SCH (12:00)
[2018-04-08] MEDS ORDERED: VANCOMYCIN 1 G PREMIX 200 ML IV NR (12:00)
[2018-04-08] MEDS: DEXTROSE 50% WATER 50ML SYRINGE IV PRN (16:55)
[2018-04-08] MEDS: ATORVASTATIN CALCIUM 40MG TABLET PO SCH (21:00)
[2018-04-09] VITALS (7 sets, daily range): BP systolic 129–167; BP diastolic 54–69
[2018-04-09] MEDS: IPRATROPIUM/ALBUTEROL 0.5-3(2.5)MG/3ML NEB HHN SCH ×3 (04:15→20:21)
[2018-04-09] MEDS: HYDROCODONE/APAP 7.5/325MG 1 TAB TABLET PO PRN (04:31)
[2018-04-09] MEDS: DEXTROSE 50% WATER 50ML SYRINGE IV PRN (04:32)
[2018-04-09] MEDS: PIPERACILLIN/TAZ 2.25G PREMIX 50 ML IV SCH ×3 (04:33→17:03)
[2018-04-09] MEDS: LEVOTHYROXINE SODIUM 50MCG TABLET PO SCH (05:08)
[2018-04-09] MEDS: BLOOD SUGAR DIAGNOSTIC STRIP TEST SCH ×4 (05:09→20:44)
[2018-04-09] MEDS: INSULIN LISPRO 100 UNITS/ML SUBCUT SCH ×4 (06:44→20:44)
[2018-04-09] MEDS: ACETYLCYSTEINE 100MG/ML 10% VIAL 4ML INH SCH ×2 (07:24)
[2018-04-09] MEDS: LEVETIRACETAM 500MG TABLET PO SCH (08:54)
[2018-04-09] MEDS: LISINOPRIL 20MG TABLET PO SCH (08:54)
[2018-04-09] MEDS: DONEPEZIL HCL 10MG TABLET PO SCH (08:55)
[2018-04-09] MEDS: CARVEDILOL 25MG TABLET PO SCH ×2 (08:55→20:43)
[2018-04-09] MEDS: CLONIDINE 0.1MG TABLET PO SCH ×2 (08:55→17:03)
[2018-04-09] MEDS: SERTRALINE HCL 100MG TABLET PO SCH (08:56)
[2018-04-09] MEDS: DOCUSATE SODIUM 100MG CAPSULE PO SCH ×2 (08:56→16:40)
[2018-04-09] MEDS: ATORVASTATIN CALCIUM 40MG TABLET PO SCH (20:43)
[2018-04-10] VITALS (12 sets, daily range): BP systolic 124–183; BP diastolic 54–81
[2018-04-10] MEDS: PIPERACILLIN/TAZ 2.25G PREMIX 50 ML IV SCH ×4 (01:31→23:02)
[2018-04-10] MEDS: IPRATROPIUM/ALBUTEROL 0.5-3(2.5)MG/3ML NEB HHN SCH ×6 (04:21→20:58)
[2018-04-10] MEDS: BLOOD SUGAR DIAGNOSTIC STRIP TEST SCH ×4 (05:47→21:00)
[2018-04-10] MEDS: INSULIN LISPRO 100 UNITS/ML SUBCUT SCH ×4 (05:47→21:00)
[2018-04-10] MEDS: LEVOTHYROXINE SODIUM 50MCG TABLET PO SCH (06:29)
[2018-04-10] MEDS: ACETYLCYSTEINE 100MG/ML 10% VIAL 4ML INH SCH (08:11)
[2018-04-10] MEDS: LEVETIRACETAM 500MG TABLET PO SCH (08:24)
[2018-04-10] MEDS: SERTRALINE HCL 100MG TABLET PO SCH (08:24)
[2018-04-10] MEDS: DONEPEZIL HCL 10MG TABLET PO SCH (08:25)
[2018-04-10] MEDS: LISINOPRIL 20MG TABLET PO SCH (08:25)
[2018-04-10] MEDS: CARVEDILOL 25MG TABLET PO SCH ×2 (08:25→20:58)
[2018-04-10] MEDS: DOCUSATE SODIUM 100MG CAPSULE PO SCH ×2 (08:26→16:53)
[2018-04-10] MEDS: CLONIDINE 0.1MG TABLET PO SCH ×2 (08:26→17:20)
[2018-04-10] MEDS ORDERED: VANCOMYCIN 1 G PREMIX 200 ML IV NR (12:00)
[2018-04-10] MEDS: HYDROCODONE/APAP 7.5/325MG 1 TAB TABLET PO PRN ×2 (15:13→19:20)
[2018-04-10] MEDS: ATORVASTATIN CALCIUM 40MG TABLET PO SCH (20:58)
[2018-04-11] VITALS (15 sets, daily range): BP systolic 124–187; BP diastolic 49–75
[2018-04-11] MEDS: IPRATROPIUM/ALBUTEROL 0.5-3(2.5)MG/3ML NEB HHN SCH ×5 (00:05→20:26)
[2018-04-11] MEDS: ACETYLCYSTEINE 100MG/ML 10% VIAL 4ML INH SCH ×4 (00:05→20:26)
[2018-04-11] MEDS: LEVOTHYROXINE SODIUM 50MCG TABLET PO SCH (05:37)
[2018-04-11] MEDS: BLOOD SUGAR DIAGNOSTIC STRIP TEST SCH ×4 (05:53→20:24)
[2018-04-11] MEDS: CLONIDINE 0.1MG TABLET PO SCH ×2 (05:54→17:10)
[2018-04-11 06:42] LABS: BASOPHILS % 0.2 % (0.0-2.0); EOSINOPHILS % 0.4 % (0.0-5.0); HEMATOCRIT. 23.1 % (42.0-52.0); HEMOGLOBIN. 7.7 g/dL (14.0-18.0); LYMPHOCYTES % 12.1 % (20.0-50.0); MEAN CORPUSCULAR HEMOGLOBIN 30.2 pg (28.0-32.0); MEAN CORPUSCULAR VOLUME 91.5 fL (80.0-94.0); MEAN PLATELET VOLUME 7.7 fl (7.4-10.4); MONOCYTES % 7.6 % (2.0-8.0); NEUTROPHILS % 79.7 % (40.0-76.0); PLATELET 304 x1000/uL (130-400); RED BLOOD CELL COUNT 2.53 mill/uL (4.7-6.1); RED CELL DISTRIBUTION WIDTH 13.6 % (11.6-14.6)
[2018-04-11] MEDS: INSULIN LISPRO 100 UNITS/ML SUBCUT SCH ×4 (07:00→20:24)
[2018-04-11] MEDS: DONEPEZIL HCL 10MG TABLET PO SCH (08:32)
[2018-04-11] MEDS: DOCUSATE SODIUM 100MG CAPSULE PO SCH ×2 (08:32→17:10)
[2018-04-11] MEDS: SERTRALINE HCL 100MG TABLET PO SCH (08:33)
[2018-04-11] MEDS: LEVETIRACETAM 500MG TABLET PO SCH (08:33)
[2018-04-11] MEDS: HYDROCODONE/APAP 7.5/325MG 1 TAB TABLET PO PRN ×2 (08:34→15:10)
[2018-04-11] MEDS: CARVEDILOL 25MG TABLET PO SCH ×2 (08:35→20:24)
[2018-04-11] MEDS: LISINOPRIL 20MG TABLET PO SCH (08:35)
[2018-04-11] MEDS: PIPERACILLIN/TAZ 2.25G PREMIX 50 ML IV SCH ×2 (08:42→15:00)
[2018-04-11] MEDS: CLOTRIMAZOLE 1% CREAM 30GM TOP SCH (09:00)
[2018-04-11] MEDS: ATORVASTATIN CALCIUM 40MG TABLET PO SCH (20:24)
[2018-04-11] MEDS ORDERED: EPOETIN ALFA 10000UNITS/ML VIAL SUBCUT SCH (21:00)
[2018-04-12] VITALS (12 sets, daily range): BP systolic 133–200; BP diastolic 58–77
[2018-04-12] MEDS: PIPERACILLIN/TAZ 2.25G PREMIX 50 ML IV SCH (00:01)
[2018-04-12] MEDS: ACETYLCYSTEINE 100MG/ML 10% VIAL 4ML INH SCH ×3 (01:00→15:03)
[2018-04-12] MEDS: IPRATROPIUM/ALBUTEROL 0.5-3(2.5)MG/3ML NEB HHN SCH ×4 (01:33→22:12)
[2018-04-12] MEDS: CLONIDINE 0.1MG TABLET PO SCH ×2 (03:01→16:25)
[2018-04-12] MEDS: HYDRALAZINE 20MG/ML VIAL IV PRN (04:42)
[2018-04-12] MEDS: LEVOTHYROXINE SODIUM 50MCG TABLET PO SCH (06:03)
[2018-04-12] MEDS: BLOOD SUGAR DIAGNOSTIC STRIP TEST SCH ×4 (06:11→20:24)
[2018-04-12] MEDS: LISINOPRIL 20MG TABLET PO SCH ×2 (06:30→08:14)
[2018-04-12 06:51] LABS: CHLORIDE 107 mEq/L (98-107)
[2018-04-12 06:55] LABS: BASOPHILS % 0.3 % (0.0-2.0); EOSINOPHILS % 0.4 % (0.0-5.0); HEMATOCRIT. 26.2 % (42.0-52.0); HEMOGLOBIN. 8.7 g/dL (14.0-18.0); LYMPHOCYTES % 11.3 % (20.0-50.0); MEAN CORPUSCULAR HEMOGLOBIN 29.1 pg (28.0-32.0); MEAN CORPUSCULAR VOLUME 88.1 fL (80.0-94.0); MEAN PLATELET VOLUME 7.4 fl (7.4-10.4); MONOCYTES % 7.6 % (2.0-8.0); NEUTROPHILS % 80.4 % (40.0-76.0); PLATELET 342 x1000/uL (130-400); RED BLOOD CELL COUNT 2.98 mill/uL (4.7-6.1); RED CELL DISTRIBUTION WIDTH 15.6 % (11.6-14.6)
[2018-04-12] MEDS: INSULIN LISPRO 100 UNITS/ML SUBCUT SCH ×4 (07:20→20:27)
[2018-04-12] MEDS: DONEPEZIL HCL 10MG TABLET PO SCH (08:14)
[2018-04-12] MEDS: LEVETIRACETAM 500MG TABLET PO SCH (08:14)
[2018-04-12] MEDS: CARVEDILOL 25MG TABLET PO SCH ×2 (08:15→20:11)
[2018-04-12] MEDS: CLOTRIMAZOLE 1% CREAM 30GM TOP SCH (08:15)
[2018-04-12] MEDS: SERTRALINE HCL 100MG TABLET PO SCH (08:15)
[2018-04-12] MEDS: DOCUSATE SODIUM 100MG CAPSULE PO SCH ×2 (08:15→16:05)
[2018-04-12] MEDS: ATORVASTATIN CALCIUM 40MG TABLET PO SCH (20:11)
[2018-04-12] MEDS: HYDROCODONE/APAP 7.5/325MG 1 TAB TABLET PO PRN (20:12)
[2018-04-12] MEDS ORDERED: PIPERACILLIN/TAZ 3.375G PREMIX 50 ML IV SCH (23:15)
[2018-04-13] VITALS (12 sets, daily range): BP systolic 132–173; BP diastolic 58–97
[2018-04-13] MEDS ORDERED: PIPERACILLIN/TAZ 2.25G PREMIX 50 ML IV SCH
[2018-04-13] MEDS: HYDRALAZINE 20MG/ML VIAL IV PRN (03:25)
[2018-04-13] MEDS: LEVOTHYROXINE SODIUM 50MCG TABLET PO SCH (06:05)
[2018-04-13] MEDS: CLONIDINE 0.1MG TABLET PO SCH ×2 (06:05→17:00)
[2018-04-13] MEDS: BLOOD SUGAR DIAGNOSTIC STRIP TEST SCH ×3 (06:53→17:19)
[2018-04-13] MEDS: INSULIN LISPRO 100 UNITS/ML SUBCUT SCH ×3 (06:53→17:19)
[2018-04-13 07:15] LABS: BASOPHILS % 0.5 % (0.0-2.0); EOSINOPHILS % 0.6 % (0.0-5.0); HEMATOCRIT. 25.6 % (42.0-52.0); HEMOGLOBIN. 8.5 g/dL (14.0-18.0); LYMPHOCYTES % 13.5 % (20.0-50.0); MEAN CORPUSCULAR HEMOGLOBIN 29.5 pg (28.0-32.0); MEAN PLATELET VOLUME 7.7 fl (7.4-10.4); MONOCYTES % 9.7 % (2.0-8.0); NEUTROPHILS % 75.7 % (40.0-76.0); PLATELET 328 x1000/uL (130-400); RED BLOOD CELL COUNT 2.87 mill/uL (4.7-6.1); RED CELL DISTRIBUTION WIDTH 15.7 % (11.6-14.6)
[2018-04-13] MEDS: IPRATROPIUM/ALBUTEROL 0.5-3(2.5)MG/3ML NEB HHN SCH ×2 (08:27→11:46)
[2018-04-13] MEDS: PIPERACILLIN/TAZ 2.25G PREMIX 50 ML IV SCH ×2 (08:56→15:40)
[2018-04-13] MEDS: CLOTRIMAZOLE 1% CREAM 30GM TOP SCH (08:57)
[2018-04-13] MEDS: SERTRALINE HCL 100MG TABLET PO SCH (08:57)
[2018-04-13] MEDS: DOCUSATE SODIUM 100MG CAPSULE PO SCH ×2 (08:57→17:00)
[2018-04-13] MEDS: LEVETIRACETAM 500MG TABLET PO SCH (08:57)
[2018-04-13] MEDS: DONEPEZIL HCL 10MG TABLET PO SCH (08:58)
[2018-04-13] MEDS: LISINOPRIL 20MG TABLET PO SCH (08:58)
[2018-04-13] MEDS: CARVEDILOL 25MG TABLET PO SCH (08:58)
[2018-04-13] MEDS: HYDROCODONE/APAP 7.5/325MG 1 TAB TABLET PO PRN (15:11)
== END 2018-04-13 18:40 | DRG 871 ==
LOC: ER 14:11 → 3WST 15:24 → ENRESERV 17:56
PROVIDERS: ADMIT Internal Medicine Nephrology; ATTEND Internal Medicine Nephrology
PROC: 5A1D70Z Performance of Urinary Filtration, Intermittent, Less than 6 Hours Per Day (ICD-10-PCS; 2018-04-06)
PROC: 5A09357 Assistance with Respiratory Ventilation, Less than 24 Consecutive Hours, Continuous Positive Airway Pressure (ICD-10-PCS; 2018-04-06)
PROC: 5A09357 Assistance with Respiratory Ventilation, Less than 24 Consecutive Hours, Continuous Positive Airway Pressure (ICD-10-PCS; 2018-04-08)
PROC: 5A1D70Z Performance of Urinary Filtration, Intermittent, Less than 6 Hours Per Day (ICD-10-PCS; 2018-04-10)
PROC: 30233N1 Transfusion of Nonautologous Red Blood Cells into Peripheral Vein, Percutaneous Approach (ICD-10-PCS; principal; 2018-04-11)
DX: A41.9 Sepsis, unspecified organism (principal); N18.6 End stage renal disease; I50.33 Acute on chronic diastolic (congestive) heart failure; J96.00 Acute respiratory failure, unspecified whether with hypoxia or hypercapnia; J69.0 Pneumonitis due to inhalation of food and vomit; G93.40 Encephalopathy, unspecified; E44.0 Moderate protein-calorie malnutrition; I13.2 Hypertensive heart and chronic kidney disease with heart failure and with stage 5 chronic kidney disease, or end stage renal disease; I69.354 Hemiplegia and hemiparesis following cerebral infarction affecting left non-dominant side; E11.22 Type 2 diabetes mellitus with diabetic chronic kidney disease; R13.10 Dysphagia, unspecified; B35.3 Tinea pedis; D69.2 Other nonthrombocytopenic purpura; E03.9 Hypothyroidism, unspecified; E11.649 Type 2 diabetes mellitus with hypoglycemia without coma; G89.29 Other chronic pain; M54.5 Low back pain; K75.9 Inflammatory liver disease, unspecified; L85.3 Xerosis cutis; I95.9 Hypotension, unspecified; L89.159 Pressure ulcer of sacral region, unspecified stage; L89.329 Pressure ulcer of left buttock, unspecified stage; T38.3X5A Adverse effect of insulin and oral hypoglycemic [antidiabetic] drugs, initial encounter; D63.8 Anemia in other chronic diseases classified elsewhere; R74.0 Nonspecific elevation of levels of transaminase and lactic acid dehydrogenase [LDH]; F32.9 Major depressive disorder, single episode, unspecified; L89.319 Pressure ulcer of right buttock, unspecified stage; Z90.89 Acquired absence of other organs; Z90.49 Acquired absence of other specified parts of digestive tract; Z79.82 Long term (current) use of aspirin; Z99.2 Dependence on renal dialysis; Z88.8 Allergy status to other drugs, medicaments and biological substances; Z87.891 Personal history of nicotine dependence; Z68.22 Body mass index [BMI] 22.0-22.9, adult; Y92.89 Other specified places as the place of occurrence of the external cause; Z91.81 History of falling
CPT/HCPCS: 36415; 36600; 70551; 71045; 80048; 80202; 82375; 82805; 82947; 82962; 83036; 83605; 83735; 84134; 84484; 86850; 86900; 86920; 87070; 92610; 93005; 93970; 94640; 94660; 94667; 96365; 96366; 97162; 97530; 99291; C1893; J0360; J0885; J1650; J1815; J2405; J2543; J3370; J7030; J7040; J7050; J7060; J7608; J7611; J7620; P9016; A4315

== ENCOUNTER 2018-04-30 19:29 | Inpatient (IN) | payer MEDICARE, OTHER, MEDICAID ==
[~2018-04-30] VITALS: Ht 162.6 cm; Wt 63.5 kg
[2018-04-30 20:53] LABS: BASOPHILS % 0.7 % (0.0-2.0); CHLORIDE 110 mEq/L (98-107); EOSINOPHILS % 5.9 % (0.0-5.0); HEMATOCRIT. 23.9 % (42.0-52.0); HEMOGLOBIN. 7.9 g/dL (14.0-18.0); LYMPHOCYTES % 16.3 % (20.0-50.0); MEAN CORPUSCULAR HEMOGLOBIN 29.8 pg (28.0-32.0); MEAN CORPUSCULAR VOLUME 90.1 fL (80.0-94.0); MEAN PLATELET VOLUME 7.4 fl (7.4-10.4); MONOCYTES % 9.9 % (2.0-8.0); NEUTROPHILS % 67.2 % (40.0-76.0); PLATELET 260 x1000/uL (130-400); RED BLOOD CELL COUNT 2.65 mill/uL (4.7-6.1); RED CELL DISTRIBUTION WIDTH 14.8 % (11.6-14.6)
[2018-04-30 20:57] LABS: INR 1.1; PROTHROMBIN TIME 11.3 sec (9.1-11.1)
[2018-04-30] MEDS ORDERED: DIPHENHYDRAMINE 50MG/ML VIAL IV PRN (21:30)
[2018-04-30] MEDS ORDERED: MAGNESIUM/ALUMINUM HYDROXIDE/SIMETHICONE 30ML UDC PO PRN (21:30)
[2018-04-30] MEDS ORDERED: ONDANSETRON HCL 4MG/2ML INJ IV PRN (21:30)
[2018-04-30] MEDS ORDERED: DOCUSATE SODIUM 100MG CAPSULE PO PRN (21:30)
[2018-04-30] MEDS ORDERED: ACETAMINOPHEN 325MG TABLET PO PRN (21:30)
[2018-04-30] MEDS ORDERED: GUAIFENESIN 200MG/10ML SUGAR FREE UDC PO PRN (21:30)
[2018-05-01] VITALS (8 sets, daily range): BP systolic 121–184; BP diastolic 54–171
[2018-05-01] MEDS: HYDROCODONE/ACETAMINOPHEN 5/325MG TABLET PO PRN ×6 (00:43→21:52)
[2018-05-01] MEDS ORDERED: HYDROMORPHONE HCL/PF 2MG/ML CPJ IV PRN (00:58)
[2018-05-01] MEDS: BLOOD SUGAR DIAGNOSTIC STRIP TEST SCH ×4 (06:33→21:51)
[2018-05-01] MEDS: INSULIN LISPRO 100 UNITS/ML SUBCUT SCH ×4 (06:33→21:00)
[2018-05-01 06:57] LABS: BASOPHILS % 0.7 % (0.0-2.0); EOSINOPHILS % 6.9 % (0.0-5.0); HEMATOCRIT. 23.7 % (42.0-52.0); HEMOGLOBIN. 7.8 g/dL (14.0-18.0); LYMPHOCYTES % 19.3 % (20.0-50.0); MEAN CORPUSCULAR HEMOGLOBIN 29.7 pg (28.0-32.0); MEAN CORPUSCULAR VOLUME 90.4 fL (80.0-94.0); MEAN PLATELET VOLUME 7.9 fl (7.4-10.4); NEUTROPHILS % 61.1 % (40.0-76.0); PLATELET 261 x1000/uL (130-400); RED BLOOD CELL COUNT 2.62 mill/uL (4.7-6.1); RED CELL DISTRIBUTION WIDTH 15.3 % (11.6-14.6)
[2018-05-01] MEDS: AMLODIPINE 10MG TABLET PO SCH (08:57)
[2018-05-01 09:42] LABS: CHLORIDE 110 mEq/L (98-107)
[2018-05-01] MEDS: SPIRONOLACTONE 25MG TABLET PO SCH (11:36)
[2018-05-01] MEDS: LEVETIRACETAM 500MG/5ML CUP PO SCH ×2 (11:36→21:30)
[2018-05-01] MEDS: DONEPEZIL HCL 10MG TABLET PO SCH (11:36)
[2018-05-01] MEDS: LEVOTHYROXINE SODIUM 50MCG TABLET PO SCH (11:37)
[2018-05-01] MEDS: GLIPIZIDE XL 2.5MG TABLET PO SCH (11:37)
[2018-05-01] MEDS: HYDRALAZINE HCL 50MG TABLET PO SCH ×2 (11:37→21:33)
[2018-05-01] MEDS: GABAPENTIN 100MG CAPSULE PO SCH ×2 (14:55→21:33)
[2018-05-01] MEDS: ATORVASTATIN CALCIUM 40MG TABLET PO SCH (21:33)
[2018-05-02] VITALS: BP 141/65
[2018-05-02 04:00] VITALS: BP 129/60
[2018-05-02] MEDS: LEVOTHYROXINE SODIUM 50MCG TABLET PO SCH (06:48)
[2018-05-02] MEDS: GABAPENTIN 100MG CAPSULE PO SCH ×3 (06:48→21:49)
[2018-05-02] MEDS: INSULIN LISPRO 100 UNITS/ML SUBCUT SCH ×4 (07:40→21:00)
[2018-05-02] MEDS: BLOOD SUGAR DIAGNOSTIC STRIP TEST SCH ×4 (07:46→21:49)
[2018-05-02 08:00] VITALS: BP 159/71
[2018-05-02] MEDS: SPIRONOLACTONE 25MG TABLET PO SCH (09:12)
[2018-05-02] MEDS: AMLODIPINE 10MG TABLET PO SCH (09:12)
[2018-05-02] MEDS: LEVETIRACETAM 500MG/5ML CUP PO SCH ×2 (09:12→21:49)
[2018-05-02] MEDS: GLIPIZIDE XL 2.5MG TABLET PO SCH (09:13)
[2018-05-02] MEDS: HYDRALAZINE HCL 50MG TABLET PO SCH ×2 (09:13→21:55)
[2018-05-02] MEDS: DONEPEZIL HCL 10MG TABLET PO SCH (09:16)
[2018-05-02 12:00] VITALS: BP 174/75
[2018-05-02] MEDS: DEXTROSE 50% WATER 50ML SYRINGE IV PRN ×3 (13:08→23:18)
[2018-05-02] MEDS: CLONIDINE 0.1MG TABLET PO PRN (13:58)
[2018-05-02 16:00] VITALS: BP 168/73
[2018-05-02 20:00] VITALS: BP 161/71
[2018-05-02] MEDS: ATORVASTATIN CALCIUM 40MG TABLET PO SCH (21:49)
[2018-05-03] VITALS (27 sets, daily range): BP systolic 105–208; BP diastolic 49–131
[2018-05-03] MEDS ORDERED: DEXTROSE 50% WATER 50ML SYRINGE IV SCH
[2018-05-03] MEDS: DEXTROSE 50% WATER 50ML SYRINGE IV PRN ×2 (02:30→03:50)
[2018-05-03] MEDS ORDERED: DEXTROSE 5% WATER 1,000 ML IV SCH (05:30)
[2018-05-03] MEDS: GABAPENTIN 100MG CAPSULE PO SCH ×3 (05:54→20:49)
[2018-05-03] MEDS: BLOOD SUGAR DIAGNOSTIC STRIP TEST SCH ×3 (06:21→20:47)
[2018-05-03] MEDS: LEVOTHYROXINE SODIUM 50MCG TABLET PO SCH (06:22)
[2018-05-03] MEDS ORDERED: DEXT 10% WATER 1,000 ML IV SCH (07:30)
[2018-05-03] MEDS ORDERED: ETOMIDATE 2MG/ML 10ML VIAL IV ONE (07:32)
[2018-05-03] MEDS ORDERED: SUCCINYLCHOLINE CHLORIDE 200MG/10ML IV ONE (07:32)
[2018-05-03] MEDS: DEXT 10% WATER 1,000 ML IV SCH (07:38)
[2018-05-03] MEDS: INSULIN LISPRO 100 UNITS/ML SUBCUT SCH ×3 (07:40→20:48)
[2018-05-03] MEDS: GLIPIZIDE XL 2.5MG TABLET PO SCH (07:40)
[2018-05-03] MEDS ORDERED: LIDOCAINE HCL 1% 20ML VIAL (Pyxis) INJ ONE (08:17)
[2018-05-03] MEDS: AMLODIPINE 10MG TABLET PO SCH (09:00)
[2018-05-03] MEDS: HYDRALAZINE HCL 50MG TABLET PO SCH ×2 (09:00→20:48)
[2018-05-03] MEDS: SPIRONOLACTONE 25MG TABLET PO SCH (09:00)
[2018-05-03] MEDS: LEVETIRACETAM 500MG/5ML CUP PO SCH ×2 (09:21→20:48)
[2018-05-03] MEDS: DONEPEZIL HCL 10MG TABLET PO SCH (09:21)
[2018-05-03] MEDS: HYDROCODONE/ACETAMINOPHEN 5/325MG TABLET PO PRN (15:30)
[2018-05-03 17:34] LABS: BG BASE EXCESS -9.4 mmol/L (-2.0-2.0); BG CARBOXYHEMOGLOBIN 0.3 % (0.5-1.5); BG DEOXYHEMOGLOBIN 50.9 % (0.0-5.0); BG FRACTION INSPIRED OXYGEN 100; BG HCO3 ACT 20.8 mmol/L (22.0-26.0); BG METHEMOGLOBIN 0.1 % (0.0-1.5); BG OXYGEN SATURATION 48.9 % (92.0-98.5); BG OXYHEMOGLOBIN 48.7 % (94.0-97.0); BG PCO2 67.7 mmHg (35.0-45.0); BG PH 7.106 (7.350-7.450); BG PO2 36.6 mmHg (75.0-100.0); BG SAMPLE SITE RIGHT BRACHIAL; BG TOTAL HEMOGLOBIN 12.2 g/dL (12.0-18.0); BG VENT MODE MASK - NRB
[2018-05-03 18:51] LABS: BG BASE EXCESS -7.2 mmol/L (-2.0-2.0); BG CARBOXYHEMOGLOBIN 0.3 % (0.5-1.5); BG DEOXYHEMOGLOBIN 0.4 % (0.0-5.0); BG FRACTION INSPIRED OXYGEN 100; BG HCO3 ACT 20.4 mmol/L (22.0-26.0); BG METHEMOGLOBIN 0.4 % (0.0-1.5); BG OXYGEN SATURATION 99.6 % (92.0-98.5); BG OXYHEMOGLOBIN 98.9 % (94.0-97.0); BG PCO2 50.3 mmHg (35.0-45.0); BG PH 7.226 (7.350-7.450); BG PO2 464.8 mmHg (75.0-100.0); BG SAMPLE SITE RIGHT BRACHIAL; BG TIDAL VOLUME(mL) 550 mL; BG TOTAL HEMOGLOBIN 11.3 g/dL (12.0-18.0); BG VENT MODE VENT - A/C; BG VENT RATE 14 set
[2018-05-03 19:36] LABS: HEMATOCRIT. 33.8 % (42.0-52.0); HEMOGLOBIN. 10.8 g/dL (14.0-18.0); MEAN CORPUSCULAR HEMOGLOBIN 28.7 pg (28.0-32.0); MEAN CORPUSCULAR VOLUME 90.1 fL (80.0-94.0); MEAN PLATELET VOLUME 7.3 fl (7.4-10.4); PLATELET 332 x1000/uL (130-400); RED BLOOD CELL COUNT 3.75 mill/uL (4.7-6.1); RED CELL DISTRIBUTION WIDTH 15.4 % (11.6-14.6)
[2018-05-03] MEDS: ATORVASTATIN CALCIUM 40MG TABLET PO SCH (20:49)
[2018-05-03] MEDS: METRONIDAZOLE 500 MG PREMIX 100 ML IV SCH (21:06)
[2018-05-03 21:33] LABS: PLATELET ESTIMATE NORMAL
[2018-05-04] VITALS (64 sets, daily range): BP systolic 108–168; BP diastolic 60–87
[2018-05-04] MEDS: PROPOFOL 10MG/ML 100ML 100 ML IV PRN ×4 (00:03→17:08)
[2018-05-04] MEDS: IPRATROPIUM/ALBUTEROL 0.5-3(2.5)MG/3ML NEB HHN SCH ×6 (04:18→20:20)
[2018-05-04 05:46] LABS: BASOPHILS % 0.2 % (0.0-2.0); EOSINOPHILS % 0.4 % (0.0-5.0); HEMATOCRIT. 27.5 % (42.0-52.0); LYMPHOCYTES % 8.9 % (20.0-50.0); MEAN CORPUSCULAR VOLUME 88.5 fL (80.0-94.0); MEAN PLATELET VOLUME 7.5 fl (7.4-10.4); MONOCYTES % 6.7 % (2.0-8.0); NEUTROPHILS % 83.8 % (40.0-76.0); PLATELET 254 x1000/uL (130-400); RED BLOOD CELL COUNT 3.11 mill/uL (4.7-6.1); RED CELL DISTRIBUTION WIDTH 15.8 % (11.6-14.6)
[2018-05-04 05:51] LABS: CHLORIDE 103 mEq/L (98-107)
[2018-05-04] MEDS: BLOOD SUGAR DIAGNOSTIC STRIP TEST SCH ×4 (07:50→21:33)
[2018-05-04] MEDS: INSULIN LISPRO 100 UNITS/ML SUBCUT SCH ×4 (08:20→21:00)
[2018-05-04] MEDS: SPIRONOLACTONE 25MG TABLET PO SCH (08:50)
[2018-05-04] MEDS: LEVETIRACETAM 500MG/5ML CUP PO SCH ×2 (08:50→21:42)
[2018-05-04] MEDS: LEVOTHYROXINE SODIUM 50MCG TABLET PO SCH (08:50)
[2018-05-04] MEDS: GABAPENTIN 100MG CAPSULE PO SCH ×3 (08:50→21:42)
[2018-05-04] MEDS: HYDRALAZINE HCL 50MG TABLET PO SCH ×2 (08:50→21:43)
[2018-05-04] MEDS: METRONIDAZOLE 500 MG PREMIX 100 ML IV SCH ×2 (08:50→21:42)
[2018-05-04] MEDS: DEXT 10% WATER 1,000 ML IV SCH (08:51)
[2018-05-04] MEDS: AMLODIPINE 10MG TABLET PO SCH (08:51)
[2018-05-04] MEDS: DONEPEZIL HCL 10MG TABLET PO SCH (10:18)
[2018-05-04 15:41] LABS: BG BASE EXCESS -1.5 mmol/L (-2.0-2.0); BG CARBOXYHEMOGLOBIN 0.3 % (0.5-1.5); BG DEOXYHEMOGLOBIN 2.2 % (0.0-5.0); BG FRACTION INSPIRED OXYGEN 50; BG HCO3 ACT 20.9 mmol/L (22.0-26.0); BG METHEMOGLOBIN 0.4 % (0.0-1.5); BG OXYGEN SATURATION 97.8 % (92.0-98.5); BG OXYHEMOGLOBIN 97.1 % (94.0-97.0); BG PCO2 27.4 mmHg (35.0-45.0); BG PH 7.501 (7.350-7.450); BG PO2 103.2 mmHg (75.0-100.0); BG SAMPLE SITE RIGHT RADIAL; BG TIDAL VOLUME(mL) 550 mL; BG TOTAL HEMOGLOBIN 9.3 g/dL (12.0-18.0); BG VENT MODE VENT - A/C; BG VENT RATE 20 set
[2018-05-04] MEDS: ATORVASTATIN CALCIUM 40MG TABLET PO SCH (21:43)
[2018-05-05] VITALS (57 sets, daily range): BP systolic 101–194; BP diastolic 63–115
[2018-05-05] MEDS: IPRATROPIUM/ALBUTEROL 0.5-3(2.5)MG/3ML NEB HHN SCH ×6 (00:19→20:03)
[2018-05-05] MEDS: PROPOFOL 10MG/ML 100ML 100 ML IV PRN ×4 (01:33→18:59)
[2018-05-05] MEDS: GABAPENTIN 100MG CAPSULE PO SCH ×3 (06:05→21:39)
[2018-05-05] MEDS: BLOOD SUGAR DIAGNOSTIC STRIP TEST SCH ×4 (07:50→21:29)
[2018-05-05 08:11] LABS: BG BASE EXCESS -0.1 mmol/L (-2.0-2.0); BG CARBOXYHEMOGLOBIN 0.3 % (0.5-1.5); BG DEOXYHEMOGLOBIN 1.3 % (0.0-5.0); BG FRACTION INSPIRED OXYGEN 50; BG HCO3 ACT 23.7 mmol/L (22.0-26.0); BG METHEMOGLOBIN 0.6 % (0.0-1.5); BG OXYGEN SATURATION 98.7 % (92.0-98.5); BG OXYHEMOGLOBIN 97.8 % (94.0-97.0); BG PCO2 35.2 mmHg (35.0-45.0); BG PH 7.446 (7.350-7.450); BG SAMPLE SITE RIGHT RADIAL; BG TIDAL VOLUME(mL) 550 mL; BG TOTAL HEMOGLOBIN 9.5 g/dL (12.0-18.0); BG VENT MODE VENT - A/C; BG VENT RATE 14 set
[2018-05-05] MEDS: INSULIN LISPRO 100 UNITS/ML SUBCUT SCH ×4 (08:20→21:38)
[2018-05-05] MEDS: DEXT 10% WATER 1,000 ML IV SCH (08:26)
[2018-05-05] MEDS: HYDRALAZINE HCL 50MG TABLET PO SCH ×2 (08:27→21:38)
[2018-05-05] MEDS: SPIRONOLACTONE 25MG TABLET PO SCH (08:27)
[2018-05-05] MEDS: DONEPEZIL HCL 10MG TABLET PO SCH (08:27)
[2018-05-05] MEDS: AMLODIPINE 10MG TABLET PO SCH (08:27)
[2018-05-05] MEDS: LEVOTHYROXINE SODIUM 50MCG TABLET PO SCH (08:27)
[2018-05-05] MEDS: LEVETIRACETAM 500MG/5ML CUP PO SCH ×2 (08:27→21:38)
[2018-05-05] MEDS: METRONIDAZOLE 500 MG PREMIX 100 ML IV SCH ×2 (08:27→21:39)
[2018-05-05 10:58] LABS: BASOPHILS % 0.2 % (0.0-2.0); EOSINOPHILS % 1.3 % (0.0-5.0); HEMATOCRIT. 24.8 % (42.0-52.0); HEMOGLOBIN. 8.2 g/dL (14.0-18.0); LYMPHOCYTES % 7.2 % (20.0-50.0); MEAN CORPUSCULAR HEMOGLOBIN 29.4 pg (28.0-32.0); MEAN CORPUSCULAR VOLUME 88.5 fL (80.0-94.0); MEAN PLATELET VOLUME 7.5 fl (7.4-10.4); NEUTROPHILS % 83.3 % (40.0-76.0); PLATELET 239 x1000/uL (130-400); RED CELL DISTRIBUTION WIDTH 15.4 % (11.6-14.6)
[2018-05-05] MEDS ORDERED: CEFEPIME 1,000 MG in DEXTROSE 5% WATER 50 ML IV SCH ×2 (12:45→15:00)
[2018-05-05] MEDS: FAMOTIDINE 20MG TABLET PO SCH (13:52)
[2018-05-05] MEDS: FENTANYL CITRATE/PF 500 MCG in SODIUM CHLORIDE 0.9% 40 ML IV PRN (14:29)
[2018-05-05] MEDS ORDERED: METOPROLOL TARTRATE 5MG/5ML VIAL IV SCH (15:30)
[2018-05-05] MEDS ORDERED: HEPARIN SODIUM 1,000 UNIT/1ML VIAL IV ONE (17:30)
[2018-05-05] MEDS: METOPROLOL TARTRATE 5MG/5ML VIAL IV PRN (19:48)
[2018-05-05] MEDS ORDERED: VANCOMYCIN 1250MG in DEXTROSE 5% WATER 250ML IV SCH (20:00)
[2018-05-05] MEDS: ATORVASTATIN CALCIUM 40MG TABLET PO SCH (21:38)
[2018-05-06] VITALS (87 sets, daily range): BP systolic 102–189; BP diastolic 57–94
[2018-05-06] MEDS: IPRATROPIUM/ALBUTEROL 0.5-3(2.5)MG/3ML NEB HHN SCH ×6 (00:01→20:27)
[2018-05-06] MEDS: METOPROLOL TARTRATE 5MG/5ML VIAL IV PRN (01:27)
[2018-05-06] MEDS: PROPOFOL 10MG/ML 100ML 100 ML IV PRN ×2 (01:28→09:19)
[2018-05-06] MEDS: GABAPENTIN 100MG CAPSULE PO SCH ×3 (06:07→22:23)
[2018-05-06] MEDS: LEVETIRACETAM 500MG/5ML CUP PO SCH ×2 (08:09→22:22)
[2018-05-06] MEDS: LEVOTHYROXINE SODIUM 50MCG TABLET PO SCH (08:10)
[2018-05-06] MEDS: AMLODIPINE 10MG TABLET PO SCH (08:10)
[2018-05-06] MEDS: SPIRONOLACTONE 25MG TABLET PO SCH (08:10)
[2018-05-06] MEDS: METRONIDAZOLE 500 MG PREMIX 100 ML IV SCH ×2 (08:10→22:22)
[2018-05-06] MEDS: INSULIN LISPRO 100 UNITS/ML SUBCUT SCH ×4 (08:10→21:00)
[2018-05-06] MEDS: FAMOTIDINE 20MG TABLET PO SCH (08:10)
[2018-05-06] MEDS: DONEPEZIL HCL 10MG TABLET PO SCH (08:10)
[2018-05-06] MEDS: BLOOD SUGAR DIAGNOSTIC STRIP TEST SCH ×4 (08:11→21:00)
[2018-05-06] MEDS: DEXT 10% WATER 1,000 ML IV SCH (08:12)
[2018-05-06 08:24] LABS: BASOPHILS % 0.3 % (0.0-2.0); EOSINOPHILS % 0.7 % (0.0-5.0); HEMATOCRIT. 25.2 % (42.0-52.0); MEAN CORPUSCULAR HEMOGLOBIN 28.4 pg (28.0-32.0); MONOCYTES % 8.9 % (2.0-8.0); NEUTROPHILS % 82.1 % (40.0-76.0); RED CELL DISTRIBUTION WIDTH 15.4 % (11.6-14.6)
[2018-05-06 08:57] LABS: BG CARBOXYHEMOGLOBIN 0.2 % (0.5-1.5); BG DEOXYHEMOGLOBIN 4.5 % (0.0-5.0); BG FRACTION INSPIRED OXYGEN 35; BG HCO3 ACT 25.9 mmol/L (22.0-26.0); BG OXYGEN SATURATION 95.5 % (92.0-98.5); BG OXYHEMOGLOBIN 95.3 % (94.0-97.0); BG PCO2 42.6 mmHg (35.0-45.0); BG PH 7.402 (7.350-7.450); BG PO2 84.5 mmHg (75.0-100.0); BG SAMPLE SITE RIGHT RADIAL; BG TIDAL VOLUME(mL) 550 mL; BG TOTAL HEMOGLOBIN 8.6 g/dL (12.0-18.0); BG VENT MODE VENT - A/C; BG VENT RATE 14 set
[2018-05-06] MEDS: HYDRALAZINE HCL 50MG TABLET PO SCH ×2 (09:49→22:23)
[2018-05-06 10:58] LABS: PLATELET 249 x1000/uL (130-400)
[2018-05-06] MEDS ORDERED: FAMOTIDINE 20MG TABLET PO SCH (13:00)
[2018-05-06] MEDS ORDERED: CEFEPIME 1,000 MG in DEXTROSE 5% WATER 50 ML IV SCH (14:00)
[2018-05-06] MEDS: METOCLOPRAMIDE HCL 10MG/2ML VIAL IV SCH (17:09)
[2018-05-06] MEDS: LORAZEPAM 2MG/ML CPJ IV PRN (17:10)
[2018-05-06] MEDS: CLONIDINE 0.1MG TABLET PO PRN (17:58)
[2018-05-06] MEDS: FENTANYL CITRATE/PF 500 MCG in SODIUM CHLORIDE 0.9% 40 ML IV PRN (18:49)
[2018-05-06] MEDS: ATORVASTATIN CALCIUM 40MG TABLET PO SCH (22:22)
[2018-05-07] VITALS (92 sets, daily range): BP systolic 85–171; BP diastolic 47–89
[2018-05-07] MEDS: METOCLOPRAMIDE HCL 10MG/2ML VIAL IV SCH ×5 (00:32→23:07)
[2018-05-07] MEDS: IPRATROPIUM/ALBUTEROL 0.5-3(2.5)MG/3ML NEB HHN SCH ×6 (00:33→20:29)
[2018-05-07] MEDS: GABAPENTIN 100MG CAPSULE PO SCH ×3 (06:07→22:18)
[2018-05-07] MEDS: CLONIDINE 0.1MG TABLET PO PRN (06:16)
[2018-05-07 08:05] LABS: HEMATOCRIT. 24.5 % (42.0-52.0); MEAN CORPUSCULAR HEMOGLOBIN 29.3 pg (28.0-32.0); MEAN CORPUSCULAR VOLUME 89.5 fL (80.0-94.0); MEAN PLATELET VOLUME 7.7 fl (7.4-10.4); PLATELET 234 x1000/uL (130-400); RED BLOOD CELL COUNT 2.74 mill/uL (4.7-6.1); RED CELL DISTRIBUTION WIDTH 15.2 % (11.6-14.6)
[2018-05-07] MEDS: INSULIN LISPRO 100 UNITS/ML SUBCUT SCH ×4 (08:20→23:06)
[2018-05-07] MEDS: LEVETIRACETAM 500MG/5ML CUP PO SCH ×2 (08:32→21:06)
[2018-05-07] MEDS: FAMOTIDINE 20MG TABLET PO SCH (08:32)
[2018-05-07] MEDS: LEVOTHYROXINE SODIUM 50MCG TABLET PO SCH (08:33)
[2018-05-07] MEDS: SPIRONOLACTONE 25MG TABLET PO SCH (08:33)
[2018-05-07] MEDS: METRONIDAZOLE 500 MG PREMIX 100 ML IV SCH ×2 (08:34→22:18)
[2018-05-07] MEDS: HYDRALAZINE HCL 50MG TABLET PO SCH ×3 (08:34→23:07)
[2018-05-07] MEDS: DONEPEZIL HCL 10MG TABLET PO SCH (08:34)
[2018-05-07] MEDS: BLOOD SUGAR DIAGNOSTIC STRIP TEST SCH ×4 (08:35→23:08)
[2018-05-07] MEDS: DEXT 10% WATER 1,000 ML IV SCH (08:35)
[2018-05-07] MEDS: AMLODIPINE 10MG TABLET PO SCH (08:35)
[2018-05-07] MEDS: METOPROLOL TARTRATE 5MG/5ML VIAL IV PRN (09:16)
[2018-05-07 10:14] LABS: PLATELET ESTIMATE NORMAL
[2018-05-07] MEDS ORDERED: LACTULOSE 20G/30ML UDC PO SCH (11:30)
[2018-05-07] MEDS ORDERED: LACTULOSE 20G/30ML UDC PO PRN (11:30)
[2018-05-07] MEDS: ACETYLCYSTEINE 100MG/ML 10% VIAL 4ML INH SCH (11:31)
[2018-05-07 12:03] LABS: BG BASE EXCESS 1.4 mmol/L (-2.0-2.0); BG CARBOXYHEMOGLOBIN 0.3 % (0.5-1.5); BG DEOXYHEMOGLOBIN 2.5 % (0.0-5.0); BG FRACTION INSPIRED OXYGEN 35; BG HCO3 ACT 25.7 mmol/L (22.0-26.0); BG METHEMOGLOBIN 0.4 % (0.0-1.5); BG OXYGEN SATURATION 97.5 % (92.0-98.5); BG OXYHEMOGLOBIN 96.8 % (94.0-97.0); BG PCO2 39.5 mmHg (35.0-45.0); BG PH 7.432 (7.350-7.450); BG PO2 99.8 mmHg (75.0-100.0); BG SAMPLE SITE RIGHT RADIAL; BG TIDAL VOLUME(mL) 550 mL; BG VENT MODE VENT - A/C; BG VENT RATE 14 set
[2018-05-07] MEDS ORDERED: HEPARIN SODIUM 1,000 UNIT/1ML VIAL IV NR (12:30)
[2018-05-07] MEDS: MEROPENEM 500 MG in SODIUM CHLORIDE 0.9% 50 ML IV SCH (14:00)
[2018-05-07] MEDS: ATORVASTATIN CALCIUM 40MG TABLET PO SCH (21:07)
[2018-05-07] MEDS: FENTANYL CITRATE/PF 500 MCG in SODIUM CHLORIDE 0.9% 40 ML IV PRN (22:25)
[2018-05-08] VITALS (85 sets, daily range): BP systolic 103–188; BP diastolic 52–98
[2018-05-08] MEDS: ACETYLCYSTEINE 100MG/ML 10% VIAL 4ML INH SCH ×3 (00:50→15:37)
[2018-05-08] MEDS: IPRATROPIUM/ALBUTEROL 0.5-3(2.5)MG/3ML NEB HHN SCH ×6 (00:51→20:18)
[2018-05-08] MEDS: INSULIN LISPRO 100 UNITS/ML SUBCUT SCH ×4 (06:00→23:58)
[2018-05-08] MEDS: GABAPENTIN 100MG CAPSULE PO SCH ×3 (06:52→20:25)
[2018-05-08] MEDS: BLOOD SUGAR DIAGNOSTIC STRIP TEST SCH ×4 (06:52→23:58)
[2018-05-08] MEDS: DEXT 10% WATER 1,000 ML IV SCH (06:52)
[2018-05-08] MEDS: METOCLOPRAMIDE HCL 10MG/2ML VIAL IV SCH ×4 (06:52→23:59)
[2018-05-08 07:23] LABS: BASOPHILS % 0.3 % (0.0-2.0); EOSINOPHILS % 1.1 % (0.0-5.0); HEMATOCRIT. 21.4 % (42.0-52.0); HEMOGLOBIN. 7.1 g/dL (14.0-18.0); LYMPHOCYTES % 7.3 % (20.0-50.0); MEAN CORPUSCULAR HEMOGLOBIN 29.5 pg (28.0-32.0); MEAN CORPUSCULAR VOLUME 88.5 fL (80.0-94.0); MEAN PLATELET VOLUME 7.6 fl (7.4-10.4); MONOCYTES % 10.1 % (2.0-8.0); NEUTROPHILS % 81.2 % (40.0-76.0); PLATELET 207 x1000/uL (130-400); RED BLOOD CELL COUNT 2.42 mill/uL (4.7-6.1); RED CELL DISTRIBUTION WIDTH 15.3 % (11.6-14.6)
[2018-05-08 07:53] LABS: BG CARBOXYHEMOGLOBIN 0.6 % (0.5-1.5); BG DEOXYHEMOGLOBIN 1.6 % (0.0-5.0); BG FRACTION INSPIRED OXYGEN 35; BG HCO3 ACT 24.1 mmol/L (22.0-26.0); BG METHEMOGLOBIN 0.5 % (0.0-1.5); BG OXYGEN SATURATION 98.4 % (92.0-98.5); BG OXYHEMOGLOBIN 97.3 % (94.0-97.0); BG PCO2 36.4 mmHg (35.0-45.0); BG PH 7.439 (7.350-7.450); BG PO2 121.2 mmHg (75.0-100.0); BG SAMPLE SITE RIGHT BRACHIAL; BG TIDAL VOLUME(mL) 550 mL; BG TOTAL HEMOGLOBIN 6.2 g/dL (12.0-18.0); BG VENT MODE VENT - A/C; BG VENT RATE 14 set
[2018-05-08] MEDS: FAMOTIDINE 20MG TABLET PO SCH (09:46)
[2018-05-08] MEDS: HYDRALAZINE HCL 50MG TABLET PO SCH ×2 (09:46→20:25)
[2018-05-08] MEDS: AMLODIPINE 10MG TABLET PO SCH (09:46)
[2018-05-08] MEDS: LEVOTHYROXINE SODIUM 50MCG TABLET PO SCH (09:46)
[2018-05-08] MEDS: DONEPEZIL HCL 10MG TABLET PO SCH (09:46)
[2018-05-08] MEDS: LEVETIRACETAM 500MG/5ML CUP PO SCH ×2 (09:46→20:25)
[2018-05-08] MEDS: SPIRONOLACTONE 25MG TABLET PO SCH (09:47)
[2018-05-08] MEDS: METRONIDAZOLE 500 MG PREMIX 100 ML IV SCH (09:47)
[2018-05-08] MEDS ORDERED: VANCOMYCIN 750 MG PREMIX 150 ML IV SCH (13:00)
[2018-05-08] MEDS: MEROPENEM 500 MG in SODIUM CHLORIDE 0.9% 50 ML IV SCH (13:02)
[2018-05-08] MEDS: ATORVASTATIN CALCIUM 40MG TABLET PO SCH (20:25)
[2018-05-09] VITALS (79 sets, daily range): BP systolic 88–204; BP diastolic 50–95
[2018-05-09] MEDS: ACETYLCYSTEINE 100MG/ML 10% VIAL 4ML INH SCH ×4 (00:09→23:52)
[2018-05-09] MEDS: IPRATROPIUM/ALBUTEROL 0.5-3(2.5)MG/3ML NEB HHN SCH ×7 (00:09→23:51)
[2018-05-09] MEDS: BLOOD SUGAR DIAGNOSTIC STRIP TEST SCH ×3 (05:23→18:18)
[2018-05-09] MEDS: GABAPENTIN 100MG CAPSULE PO SCH ×3 (05:23→21:11)
[2018-05-09] MEDS: METOCLOPRAMIDE HCL 10MG/2ML VIAL IV SCH ×3 (05:23→18:17)
[2018-05-09] MEDS: INSULIN LISPRO 100 UNITS/ML SUBCUT SCH ×3 (05:23→18:00)
[2018-05-09 06:22] LABS: BASOPHILS % 0.2 % (0.0-2.0); EOSINOPHILS % 1.5 % (0.0-5.0); LYMPHOCYTES % 10.8 % (20.0-50.0); MEAN CORPUSCULAR HEMOGLOBIN 29.3 pg (28.0-32.0); MEAN CORPUSCULAR VOLUME 88.5 fL (80.0-94.0); MEAN PLATELET VOLUME 7.6 fl (7.4-10.4); MONOCYTES % 11.5 % (2.0-8.0); PLATELET 211 x1000/uL (130-400); RED BLOOD CELL COUNT 2.21 mill/uL (4.7-6.1)
[2018-05-09 06:54] LABS: HEMOGLOBIN. 6.5 g/dL (14.0-18.0)
[2018-05-09 06:55] LABS: HEMATOCRIT. 19.6 % (42.0-52.0)
[2018-05-09] MEDS: DONEPEZIL HCL 10MG TABLET PO SCH (08:21)
[2018-05-09] MEDS: AMLODIPINE 10MG TABLET PO SCH (08:21)
[2018-05-09] MEDS: LEVETIRACETAM 500MG/5ML CUP PO SCH ×2 (08:21→20:23)
[2018-05-09] MEDS: LEVOTHYROXINE SODIUM 50MCG TABLET PO SCH (08:21)
[2018-05-09] MEDS: FAMOTIDINE 20MG TABLET PO SCH (08:21)
[2018-05-09] MEDS: SPIRONOLACTONE 25MG TABLET PO SCH (08:22)
[2018-05-09] MEDS: DEXT 10% WATER 1,000 ML IV SCH (08:22)
[2018-05-09] MEDS: HYDRALAZINE HCL 50MG TABLET PO SCH ×2 (08:22→20:23)
[2018-05-09 11:05] LABS: BG BASE EXCESS -4.2 mmol/L (-2.0-2.0); BG CARBOXYHEMOGLOBIN 0.5 % (0.5-1.5); BG DEOXYHEMOGLOBIN 8.4 % (0.0-5.0); BG FRACTION INSPIRED OXYGEN 35; BG HCO3 ACT 20.8 mmol/L (22.0-26.0); BG METHEMOGLOBIN 0.5 % (0.0-1.5); BG OXYGEN SATURATION 91.5 % (92.0-98.5); BG OXYHEMOGLOBIN 90.6 % (94.0-97.0); BG PCO2 37.9 mmHg (35.0-45.0); BG PH 7.358 (7.350-7.450); BG PO2 69.2 mmHg (75.0-100.0); BG PRESSURE SUPPORT 8; BG SAMPLE SITE RIGHT RADIAL; BG TOTAL HEMOGLOBIN 7.4 g/dL (12.0-18.0); BG VENT MODE VENT - CPAP
[2018-05-09] MEDS ORDERED: ETOMIDATE 2MG/ML 10ML VIAL IV ONE (14:04)
[2018-05-09] MEDS ORDERED: VECURONIUM BROMIDE 10 MG/VIAL IV ONE (14:04)
[2018-05-09 14:57] LABS: BG BASE EXCESS -6.6 mmol/L (-2.0-2.0); BG CARBOXYHEMOGLOBIN 0.1 % (0.5-1.5); BG DEOXYHEMOGLOBIN 4.1 % (0.0-5.0); BG FRACTION INSPIRED OXYGEN 50; BG HCO3 ACT 19.4 mmol/L (22.0-26.0); BG METHEMOGLOBIN 0.4 % (0.0-1.5); BG OXYGEN SATURATION 95.9 % (92.0-98.5); BG OXYHEMOGLOBIN 95.4 % (94.0-97.0); BG PCO2 40.9 mmHg (35.0-45.0); BG PH 7.294 (7.350-7.450); BG PO2 94.2 mmHg (75.0-100.0); BG SAMPLE SITE RIGHT BRACHIAL; BG TIDAL VOLUME(mL) 550 mL; BG TOTAL HEMOGLOBIN 8.9 g/dL (12.0-18.0); BG VENT MODE VENT - A/C; BG VENT RATE 14 set
[2018-05-09] MEDS ORDERED: NOREPINEPHRINE 8 MG in DEXT 5% WATER 242 ML IV PRN (16:00)
[2018-05-09] MEDS: LORAZEPAM 2MG/ML CPJ IV PRN ×2 (16:09→20:23)
[2018-05-09] MEDS: MEROPENEM 500 MG in SODIUM CHLORIDE 0.9% 50 ML IV SCH (18:17)
[2018-05-09] MEDS: METHYLPREDNISOLONE SOD SUCC 125 MG/2 ML VIAL IV SCH (18:18)
[2018-05-09] MEDS: ATORVASTATIN CALCIUM 40MG TABLET PO SCH (20:23)
[2018-05-10] VITALS (73 sets, daily range): BP systolic 108–203; BP diastolic 56–106
[2018-05-10] MEDS: BLOOD SUGAR DIAGNOSTIC STRIP TEST SCH ×4 (00:01→17:56)
[2018-05-10] MEDS: METOCLOPRAMIDE HCL 10MG/2ML VIAL IV SCH ×4 (00:06→17:55)
[2018-05-10] MEDS: METHYLPREDNISOLONE SOD SUCC 125 MG/2 ML VIAL IV SCH ×4 (00:06→17:55)
[2018-05-10] MEDS: LORAZEPAM 2MG/ML CPJ IV PRN (00:25)
[2018-05-10] MEDS: IPRATROPIUM/ALBUTEROL 0.5-3(2.5)MG/3ML NEB HHN SCH ×5 (04:19→20:23)
[2018-05-10] MEDS: GABAPENTIN 100MG CAPSULE PO SCH ×3 (05:47→21:36)
[2018-05-10 06:03] LABS: HEMATOCRIT. 25.6 % (42.0-52.0); HEMOGLOBIN. 8.6 g/dL (14.0-18.0); MEAN CORPUSCULAR VOLUME 89.3 fL (80.0-94.0); MEAN PLATELET VOLUME 7.5 fl (7.4-10.4); PLATELET 201 x1000/uL (130-400); RED BLOOD CELL COUNT 2.87 mill/uL (4.7-6.1)
[2018-05-10] MEDS: INSULIN LISPRO 100 UNITS/ML SUBCUT SCH ×4 (06:05→17:56)
[2018-05-10 08:15] LABS: BG BASE EXCESS -1.9 mmol/L (-2.0-2.0); BG CARBOXYHEMOGLOBIN 0.3 % (0.5-1.5); BG DEOXYHEMOGLOBIN 0.8 % (0.0-5.0); BG HCO3 ACT 23.1 mmol/L (22.0-26.0); BG METHEMOGLOBIN 0.1 % (0.0-1.5); BG OXYGEN SATURATION 99.2 % (92.0-98.5); BG OXYHEMOGLOBIN 98.8 % (94.0-97.0); BG PCO2 39.8 mmHg (35.0-45.0); BG PH 7.381 (7.350-7.450); BG PO2 195.3 mmHg (75.0-100.0); BG SAMPLE SITE RIGHT BRACHIAL; BG TIDAL VOLUME(mL) 550 mL; BG TOTAL HEMOGLOBIN 9.1 g/dL (12.0-18.0); BG VENT MODE VENT - A/C; BG VENT RATE 14 set
[2018-05-10] MEDS: AMLODIPINE 10MG TABLET PO SCH (08:48)
[2018-05-10] MEDS: LEVOTHYROXINE SODIUM 50MCG TABLET PO SCH (08:48)
[2018-05-10] MEDS: FAMOTIDINE 20MG TABLET PO SCH (08:48)
[2018-05-10] MEDS: DONEPEZIL HCL 10MG TABLET PO SCH (08:48)
[2018-05-10] MEDS: LEVETIRACETAM 500MG/5ML CUP PO SCH ×2 (08:48→21:36)
[2018-05-10] MEDS: HYDRALAZINE HCL 50MG TABLET PO SCH ×2 (08:49→21:31)
[2018-05-10] MEDS: SPIRONOLACTONE 25MG TABLET PO SCH (08:49)
[2018-05-10] MEDS: ACETYLCYSTEINE 100MG/ML 10% VIAL 4ML INH SCH ×2 (09:03→15:53)
[2018-05-10 09:10] LABS: PLATELET ESTIMATE NORMAL
[2018-05-10] MEDS: MEROPENEM 500 MG in SODIUM CHLORIDE 0.9% 50 ML IV SCH (11:37)
[2018-05-10] MEDS ORDERED: FENTANYL CITRATE/PF 500 MCG in SODIUM CHLORIDE 0.9% 40 ML IV PRN (16:30)
[2018-05-10] MEDS: ATORVASTATIN CALCIUM 40MG TABLET PO SCH (21:36)
[2018-05-11] VITALS (43 sets, daily range): BP systolic 114–168; BP diastolic 52–102
[2018-05-11] MEDS: IPRATROPIUM/ALBUTEROL 0.5-3(2.5)MG/3ML NEB HHN SCH ×6 (00:20→20:00)
[2018-05-11] MEDS: ACETYLCYSTEINE 100MG/ML 10% VIAL 4ML INH SCH ×3 (00:20→16:13)
[2018-05-11] MEDS: METOCLOPRAMIDE HCL 10MG/2ML VIAL IV SCH ×5 (00:22→23:28)
[2018-05-11] MEDS: METHYLPREDNISOLONE SOD SUCC 125 MG/2 ML VIAL IV SCH ×5 (00:23→23:28)
[2018-05-11] MEDS: BLOOD SUGAR DIAGNOSTIC STRIP TEST SCH ×4 (00:23→17:19)
[2018-05-11] MEDS: INSULIN LISPRO 100 UNITS/ML SUBCUT SCH ×4 (00:44→18:17)
[2018-05-11] MEDS ORDERED: FENTANYL CITRATE/PF 500 MCG in SODIUM CHLORIDE 0.9% 40 ML IV PRN (02:30)
[2018-05-11] MEDS: GABAPENTIN 100MG CAPSULE PO SCH ×3 (06:25→22:38)
[2018-05-11] MEDS: DEXT 10% WATER 1,000 ML IV SCH (06:36)
[2018-05-11 08:08] LABS: BG CARBOXYHEMOGLOBIN 0.3 % (0.5-1.5); BG DEOXYHEMOGLOBIN 1.6 % (0.0-5.0); BG HCO3 ACT 18.9 mmol/L (22.0-26.0); BG METHEMOGLOBIN 0.5 % (0.0-1.5); BG OXYGEN SATURATION 98.4 % (92.0-98.5); BG OXYHEMOGLOBIN 97.6 % (94.0-97.0); BG PCO2 34.9 mmHg (35.0-45.0); BG PH 7.352 (7.350-7.450); BG PO2 133.6 mmHg (75.0-100.0); BG SAMPLE SITE RIGHT RADIAL; BG TIDAL VOLUME(mL) 550 mL; BG TOTAL HEMOGLOBIN 8.9 g/dL (12.0-18.0); BG VENT MODE VENT - A/C; BG VENT RATE 14 set
[2018-05-11] MEDS: FAMOTIDINE 20MG TABLET PO SCH (08:28)
[2018-05-11] MEDS: DONEPEZIL HCL 10MG TABLET PO SCH (08:28)
[2018-05-11] MEDS: LEVETIRACETAM 500MG/5ML CUP PO SCH ×2 (08:28→20:07)
[2018-05-11] MEDS: HYDRALAZINE HCL 50MG TABLET PO SCH ×2 (08:29→20:07)
[2018-05-11] MEDS: AMLODIPINE 10MG TABLET PO SCH (08:29)
[2018-05-11] MEDS: SPIRONOLACTONE 25MG TABLET PO SCH (08:29)
[2018-05-11] MEDS: LEVOTHYROXINE SODIUM 50MCG TABLET PO SCH (08:29)
[2018-05-11 08:38] LABS: HEMATOCRIT. 26.4 % (42.0-52.0); HEMOGLOBIN. 8.7 g/dL (14.0-18.0); MEAN CORPUSCULAR HEMOGLOBIN 29.4 pg (28.0-32.0); MEAN CORPUSCULAR VOLUME 89.5 fL (80.0-94.0); MEAN PLATELET VOLUME 7.3 fl (7.4-10.4); PLATELET 261 x1000/uL (130-400); RED BLOOD CELL COUNT 2.95 mill/uL (4.7-6.1)
[2018-05-11] MEDS: MEROPENEM 500 MG in SODIUM CHLORIDE 0.9% 50 ML IV SCH (11:18)
[2018-05-11 11:32] LABS: PLATELET ESTIMATE NORMAL
[2018-05-11] MEDS: ATORVASTATIN CALCIUM 40MG TABLET PO SCH (20:07)
[2018-05-12] VITALS (45 sets, daily range): BP systolic 86–162; BP diastolic 38–88
[2018-05-12] MEDS: ACETYLCYSTEINE 100MG/ML 10% VIAL 4ML INH SCH ×2 (00:25→08:11)
[2018-05-12] MEDS: IPRATROPIUM/ALBUTEROL 0.5-3(2.5)MG/3ML NEB HHN SCH ×4 (00:25→11:50)
[2018-05-12] MEDS: METOPROLOL TARTRATE 5MG/5ML VIAL IV PRN (01:14)
[2018-05-12] MEDS: LORAZEPAM 2MG/ML CPJ IV PRN (01:22)
[2018-05-12] MEDS: INSULIN LISPRO 100 UNITS/ML SUBCUT SCH ×3 (06:00→12:33)
[2018-05-12] MEDS: METOCLOPRAMIDE HCL 10MG/2ML VIAL IV SCH ×2 (06:06→12:32)
[2018-05-12] MEDS: METHYLPREDNISOLONE SOD SUCC 125 MG/2 ML VIAL IV SCH (06:06)
[2018-05-12] MEDS: BLOOD SUGAR DIAGNOSTIC STRIP TEST SCH ×3 (06:08→12:35)
[2018-05-12] MEDS: GABAPENTIN 100MG CAPSULE PO SCH (06:10)
[2018-05-12] MEDS: DONEPEZIL HCL 10MG TABLET PO SCH (08:30)
[2018-05-12] MEDS: AMLODIPINE 10MG TABLET PO SCH (08:30)
[2018-05-12] MEDS: HYDRALAZINE HCL 50MG TABLET PO SCH (08:31)
[2018-05-12] MEDS: FAMOTIDINE 20MG TABLET PO SCH (08:31)
[2018-05-12] MEDS: LEVOTHYROXINE SODIUM 50MCG TABLET PO SCH (08:31)
[2018-05-12] MEDS: SPIRONOLACTONE 25MG TABLET PO SCH (08:31)
[2018-05-12] MEDS: LEVETIRACETAM 500MG/5ML CUP PO SCH (08:32)
[2018-05-12] MEDS: DEXT 10% WATER 1,000 ML IV SCH (08:32)
[2018-05-12 08:45] LABS: BG BASE EXCESS -6.3 mmol/L (-2.0-2.0); BG CARBOXYHEMOGLOBIN 0.1 % (0.5-1.5); BG DEOXYHEMOGLOBIN 2.2 % (0.0-5.0); BG FRACTION INSPIRED OXYGEN 35; BG HCO3 ACT 18.5 mmol/L (22.0-26.0); BG METHEMOGLOBIN 0.4 % (0.0-1.5); BG OXYGEN SATURATION 97.8 % (92.0-98.5); BG OXYHEMOGLOBIN 97.3 % (94.0-97.0); BG PCO2 33.7 mmHg (35.0-45.0); BG PH 7.357 (7.350-7.450); BG PO2 114.3 mmHg (75.0-100.0); BG SAMPLE SITE RIGHT RADIAL; BG TIDAL VOLUME(mL) 550 mL; BG TOTAL HEMOGLOBIN 8.2 g/dL (12.0-18.0); BG VENT MODE VENT - A/C; BG VENT RATE 14 set
[2018-05-12] MEDS ORDERED: METHYLPREDNISOLONE SOD SUCC 40 MG/ML VIAL IV SCH (10:00)
[2018-05-12] MEDS ORDERED: HEPARIN SODIUM 1,000 UNIT/1ML VIAL IV NR (10:00)
[2018-05-12 11:51] LABS: HEMATOCRIT. 27.1 % (42.0-52.0); HEMOGLOBIN. 7.7 g/dL (14.0-18.0); MEAN CORPUSCULAR HEMOGLOBIN 29.5 pg (28.0-32.0); MEAN CORPUSCULAR VOLUME 103.7 fL (80.0-94.0); MEAN PLATELET VOLUME 7.4 fl (7.4-10.4); PLATELET 253 x1000/uL (130-400); RED BLOOD CELL COUNT 2.61 mill/uL (4.7-6.1); RED CELL DISTRIBUTION WIDTH 16.5 % (11.6-14.6)
[2018-05-12 12:21] LABS: PLATELET ESTIMATE NORMAL
[2018-05-12] MEDS ORDERED: LORAZEPAM 2MG/ML CPJ IV PRN (14:00)
[2018-05-12] MEDS ORDERED: IPRATROPIUM/ALBUTEROL 0.5-3(2.5)MG/3ML NEB HHN PRN (14:00)
[2018-05-12] MEDS: MORPHINE SULFATE 100 MG in DEXT 5% WATER 90 ML IV PRN (15:14)
[2018-05-13] VITALS: BP 115/58
[2018-05-13] MEDS: MORPHINE SULFATE 100 MG in DEXT 5% WATER 90 ML IV PRN ×2 (01:43→14:02)
[2018-05-13 14:02] VITALS: BP 102/60
== END 2018-05-13 20:30 | disposition expired | DRG 314 ==
LOC: ER 19:29 → 8WST 21:11 → EDBEDREQ 21:13 → EDBEDREQTM 21:13 → ENRESERV 22:49 → 5EST 05-03 08:36 → CVICU 05-03 18:00 → 6EST 05-12 23:28
PROVIDERS: ADMIT Hospitalist; ATTEND Hospitalist
PROC: 5A1955Z Respiratory Ventilation, Greater than 96 Consecutive Hours (ICD-10-PCS; principal; 2018-05-03)
PROC: 0BH17EZ Insertion of Endotracheal Airway into Trachea, Via Natural or Artificial Opening (ICD-10-PCS; 2018-05-03)
PROC: 02HV33Z Insertion of Infusion Device into Superior Vena Cava, Percutaneous Approach (ICD-10-PCS; 2018-05-03)
PROC: B548ZZA Ultrasonography of Superior Vena Cava, Guidance (ICD-10-PCS; 2018-05-03)
PROC: 5A1D70Z Performance of Urinary Filtration, Intermittent, Less than 6 Hours Per Day (ICD-10-PCS; 2018-05-03)
PROC: 5A1D70Z Performance of Urinary Filtration, Intermittent, Less than 6 Hours Per Day (ICD-10-PCS; 2018-05-05)
PROC: 5A1D70Z Performance of Urinary Filtration, Intermittent, Less than 6 Hours Per Day (ICD-10-PCS; 2018-05-07)
PROC: 30233N1 Transfusion of Nonautologous Red Blood Cells into Peripheral Vein, Percutaneous Approach (ICD-10-PCS; 2018-05-09)
PROC: 5A1D70Z Performance of Urinary Filtration, Intermittent, Less than 6 Hours Per Day (ICD-10-PCS; 2018-05-09)
PROC: 5A1D70Z Performance of Urinary Filtration, Intermittent, Less than 6 Hours Per Day (ICD-10-PCS; 2018-05-12)
DX: T82.868A Thrombosis due to vascular prosthetic devices, implants and grafts, initial encounter (principal); A41.51 Sepsis due to Escherichia coli [E. coli]; N18.6 End stage renal disease; I50.33 Acute on chronic diastolic (congestive) heart failure; J96.00 Acute respiratory failure, unspecified whether with hypoxia or hypercapnia; J69.0 Pneumonitis due to inhalation of food and vomit; G93.41 Metabolic encephalopathy; I13.2 Hypertensive heart and chronic kidney disease with heart failure and with stage 5 chronic kidney disease, or end stage renal disease; E87.2 Acidosis; E46 Unspecified protein-calorie malnutrition; I69.354 Hemiplegia and hemiparesis following cerebral infarction affecting left non-dominant side; Z99.2 Dependence on renal dialysis; E03.9 Hypothyroidism, unspecified; Z51.5 Encounter for palliative care; Z66 Do not resuscitate; Z78.1 Physical restraint status; E11.22 Type 2 diabetes mellitus with diabetic chronic kidney disease; D64.9 Anemia, unspecified; E11.649 Type 2 diabetes mellitus with hypoglycemia without coma; E78.1 Pure hyperglyceridemia; F03.90 Unspecified dementia, unspecified severity, without behavioral disturbance, psychotic disturbance, mood disturbance, and anxiety; F32.9 Major depressive disorder, single episode, unspecified; G40.909 Epilepsy, unspecified, not intractable, without status epilepticus; G89.29 Other chronic pain; E78.5 Hyperlipidemia, unspecified; Y71.8 Miscellaneous cardiovascular devices associated with adverse incidents, not elsewhere classified; E78.00 Pure hypercholesterolemia, unspecified; K59.00 Constipation, unspecified; I50.9 Heart failure, unspecified; L89.150 Pressure ulcer of sacral region, unstageable; M54.5 Low back pain; D63.8 Anemia in other chronic diseases classified elsewhere; Y65.8 Other specified misadventures during surgical and medical care; Z68.24 Body mass index [BMI] 24.0-24.9, adult; Z86.74 Personal history of sudden cardiac arrest; Y92.89 Other specified places as the place of occurrence of the external cause; Z88.9 Allergy status to unspecified drugs, medicaments and biological substances
CPT/HCPCS: 36415; 36556; 36600; 71045; 76937; 80048; 80202; 82375; 82805; 82947; 82962; 84134; 84478; 86850; 86900; 86920; 87070; 87077; 87186; 93005; 93970; 94003; 94640; 99285; C1752; C1893; J0330; J0692; J1644; J1815; J2060; J2185; J2270; J2405; J2704; J2765; J2920; J2930; J3010; J3370; J3490; J7040; J7050; J7060; J7070; J7608; J7620; P9016